=== PATIENT | female | born 1975 | race Caucasian/White ===

== ENCOUNTER 2025-03-17 11:04 | Inpatient (IN) | payer MEDICARE, MEDICAID, SELFPAY ==
[2025-03-17] VITALS (48 sets, daily range): BP systolic 77–278; BP diastolic 43–148; PULSE 69–153; RESP 17–30; TEMP 37.2; O2SAT 87–100; BMI 37.2; BMI 38.1
--- NOTE | 2025-03-17 11:05 | ECG_ITS ---
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 Measurements Intervals [place] Rate: 160 P: 0 UT: 0 QRS: 54 QRSD: 80 T: 74 QT: 299 QTc: 488 Interpretive Statements SUPRAVENTRICULAR TACHYCARDIA, possibly sinus NONSPECIFIC T-WAVE ABNORMALITY CRITICAL TEST RESULT No previous ECG available for comparison Electronically Signed On 03-18-2025 08:45:28 CDT by Aminah Burk M.D. [email or web address] [id number]
--- NOTE | 2025-03-17 11:14 | XR_ITS ---
WS: [id number] Portable AP upright chest, 03/17/2025 Clinical Data: hypertension Comparison: None. Findings: No nodules, masses or effusions are seen. The heart is normal. The pulmonary vascularity is not increased. No pneumonia or pneumothorax is seen. Monitor leads are on the chest wall. XR/XR chest 1V portable [id number] Impression: Negative chest.
[2025-03-17] MEDS: labetalol 5 mg/mL SDV 20mL 20 MG IVP (11:21)
[2025-03-17 11:23] LABS: Basophils # 0.1 10^3/uL (0.0-0.1); Basophils % 0.9 %; Eosinophils # 0.6 10^3/uL (0.0-0.8); Eosinophils % 4.8 %; Hematocrit 41.6 % (36-47); Lymphocytes # 4.6 10^3/uL (0.8-4.8); Lymphocytes % 38.2 %; Mean Corpuscular HGB Conc 33.4 g/dL (30-55); Mean Corpuscular Hemoglobin 30.3 pg (27-33); Mean Corpuscular Volume 90.8 fl (85-98); Mean Platelet Volume 9.7 fL (7.4-10.4); Monocytes # 0.9 10^3/uL (0.2-0.9); Monocytes % 7.3 %; Neutrophils # 5.86 10^3/uL (1.8-7.7); Neutrophils % 48.5 %; Nucleated Red Blood Cells % 0 %; Platelet Count 402 10^3/cmm (157-399); Red Blood Count 4.58 10^6/uL (3.85-5.65); White Blood Count 12.08 10^3/uL (3.29-11.43)
[2025-03-17 11:39] LABS: Lactic Sepsis W/Reflex 6.3 mmol/L (0.5-2.2)
--- NOTE | 2025-03-17 11:40 | W.ED.CHESTPA ---
HPI - Chest Pain General: Chief Complaint: Chest Pain Stated Complaint: rapid response - high bp and hr Time Seen by Provider: 03/17/25 11:08 History of Present Illness: 49-year-old female with a history of extremely difficult to control blood pressure on multiple meds who says she is followed with multiple different subspecialties including cardiology, psychiatry and today she had an appointment with endocrinology because they thought she might have adrenal problems who was sent to the emergency room on a rapid response because when she arrived there her blood pressure was extremely elevated and she was tachycardic. She is having some chest discomfort. She appears quite anxious. She says she is been admitted multiple times to the ICU with her elevated blood pressure. She normally follows at [place] but was here because endocrinology is here. Related Data Home Medications ?Medication ?Instructions ?Recorded ?Confirmed alprazolam 2 mg tablet 2 mg PO TID 03/17/25 03/17/25 aripiprazole 15 mg tablet 15 mg PO BID 03/17/25 03/17/25 buprenorphine HCl 8 mg sublingual 8 mg sublingual BID 03/17/25 03/17/25 tablet bupropion HCl 150 mg tablet,12 hr 150 mg PO DAILY 03/17/25 03/17/25 sustained-release buspirone 15 mg tablet 15 mg PO TID 03/17/25 03/17/25 clonidine HCl 0.2 mg tablet 0.2 mg PO TID 03/17/25 03/17/25 ergocalciferol (vitamin D2) 1,250 1,250 mcg PO DAILY 03/17/25 03/17/25 mcg (50,000 unit) capsule fluticasone propionate 50 2 spray intranasal DAILY 03/17/25 03/17/25 mcg/actuation nasal spray,suspension hydroxyzine pamoate 50 mg capsule 50 mg PO Q6H 03/17/25 03/17/25 lamotrigine 100 mg tablet 100 mg PO DAILY 03/17/25 03/17/25 losartan 50 mg tablet 50 mg PO DAILY 03/17/25 03/17/25 metoprolol succinate 100 mg 100 mg PO BID 03/17/25 03/17/25 tablet,extended release 24 hr mirabegron 50 mg tablet,extended 50 mg PO DAILY 03/17/25 03/17/25 release 24 hr (Myrbetriq) nifedipine 90 mg tablet,extended 90 mg PO DAILY 03/17/25 03/17/25 release nitroglycerin 0.4 mg sublingual 0.4 mg sublingual PRN PRN Chest 03/17/25 03/17/25 tablet Pain omeprazole 40 mg capsule,delayed 40 mg PO DAILY 03/17/25 03/17/25 release oxybutynin chloride 10 mg 10 mg PO DAILY 03/17/25 03/17/25 tablet,extended release 24 hr potassium chloride 10 mEq 10 meq PO BID 03/17/25 03/17/25 tablet,extended release prazosin 5 mg capsule 25 mg PO QPM 03/17/25 03/17/25 promethazine 25 mg tablet 25 mg PO BID 03/17/25 03/17/25 sertraline 50 mg tablet 50 mg PO DAILY 03/17/25 03/17/25 tizanidine 4 mg tablet 4 mg PO BID 03/17/25 03/17/25 topiramate 50 mg tablet 50 mg PO DAILY 03/17/25 03/17/25 trazodone 150 mg tablet 150 mg PO TID 03/17/25 03/17/25 Allergies Allergy/AdvReac Type Severity Reaction Status Date / Time buprenorphine (From [facility]) Allergy Unknown Verified 03/17/25 10:45 droperidol Allergy Unknown Verified 03/17/25 10:45 naloxone Allergy Unknown Verified 03/17/25 10:45 Review of Systems Narrative: Constitutional symptoms: Negative except as documented in HPI. Skin symptoms: Negative except as documented in HPI. Eye symptoms: Negative except as documented in HPI. ENMT symptoms: Negative except as documented in HPI. Respiratory symptoms: Negative except as documented in HPI. Cardiovascular symptoms: Negative except as documented in HPI. Gastrointestinal symptoms: Negative except as documented in HPI. Genitourinary symptoms: Negative except as documented in HPI. Musculoskeletal symptoms: Negative except as documented in HPI. Neurologic symptoms: Negative except as documented in HPI. Psychiatric symptoms: Negative except as documented in HPI. Endocrine symptoms: Negative except as documented in HPI. PFSH ED PFSH: Social History Smoking and tobacco/nicotine status: never used tobacco/nicotine Physical Exam Narrative: EXAM NARRATIVE: General: Alert, no acute distress. Skin: Warm, dry. Head: Normocephalic, atraumatic. Neck: Supple, trachea midline. Eye: Extraocular movements are intact. Ears, nose, mouth and throat: mucosa moist. Cardiovascular: Regular, tachycardic normal peripheral perfusion. Respiratory: Lungs are clear to auscultation, respirations are non-labored, breath sounds are equal, Symmetrical chest wall expansion. Gastrointestinal: Soft, Nontender, Non distended Musculoskeletal: Normal ROM, no deformity. Neurological: Alert and oriented, No focal neurological deficit observed. Psychiatric: Cooperative, patient appears quite anxious. She has some tremor. Course Vital Signs: Vital signs: Vital Signs Temperature 99.0 F 03/17/25 11:06 Pulse Rate 105 H 03/17/25 12:21 Respiratory Rate 26 H 03/17/25 11:28 Blood Pressure 225/138 03/17/25 11:52 Pulse Oximetry 96 03/17/25 12:21 Oxygen Delivery Me thod Room Air 03/17/25 12:21 MDM - Chest Pain Medical Decision Making Medical decision making: Differential diagnosis including but not limited to and based on the above HPI, review of systems and physical exam: Patient presents with hypertension: Essential hypertension. Stroke. acute coronary syndrome. kidney failure. congestive heart failure. anxiety Orders placed to evaluate differential diagnosis based on the above differential, HPI and physical exam EKG: Time 11:05 AM. Rate 160. Sinus tachycardia, nonspecific ST changes., no ectopy, normal TN & QRS intervals, This was reviewed and interpreted by myself the ER physician at 1108 Chest x-ray: No acute process. No infiltrate. No pneumothorax. This was reviewed and interpreted by myself the emergency room physician. I also reviewed the radiology report. Lab Review: Laboratory results were reviewed and interpreted by myself the emergency room physician. Mild leukocytosis. No anemia. Creatinine is 1.3. No baseline lab work here. Initial troponin is negative at 12. proBNP is basically negative at 184. Lactate is fairly elevated at 6.3. No signs of infection. Unclear etiology to this elevation in the lactate. Urinalysis has been ordered. I reviewed the patient's medical record. Reexamination: Patient's heart rate has improved quite a bit. At the time of admission she is down to 97. Blood pressure is improved slightly. She is Bautista from the 280s to 220s systolic. She says at best at home at rest she is between 180 and 220 systolic. Consultation: I spoke with Dr. Perez we are is on-call for the hospitalist service who agrees to admission to the cardiac stepdown unit. Assessment and plan: Malignant hypertension Tachycardia Chest pain ?20 mg IV labetalol push and a nicardipine drip were initiated -I discussed the patient with the hospitalist on-call who is admitting the patient. - Discussed findings and plan with patient. Answered any questions. - All laboratory values were reviewed and interpreted personally by myself, the ER physician - All imaging was reviewed and interpreted personally by myself, the ER physician. - Evaluation and treatment of this problem were appropriate in the emergency setting Lab Data 03/17/25 11:15 03/17/25 11:15 Radiology Impressions Chest X-Ray 03/17/25 11:14 Impression: Negative chest. Laboratory Results WBC 12.08 10^3/uL (3.29-11.43) H 03/17/25 11:15 RBC 4.58 10^6/uL (3.85-5.65) 03/17/25 11:15 Hgb 13.90 g/dL (11.27-16.99) 03/17/25 11:15 Hct 41.6 % (36-47) 03/17/25 11:15 MCV 90.8 fl (85-98) 03/17/25 11:15 MCH 30.3 pg (27-33) 03/17/25 11:15 MCHC 33.4 g/dL (30-55) 03/17/25 11:15 RDW 13.0 % (12.1-15.1) 03/17/25 11:15 Plt Count 402 10^3/cmm (157-399) H 03/17/25 11:15 MPV 9.7 fL (7.4-10.4) 03/17/25 11:15 Neut % (Auto) 48.5 % 03/17/25 11:15 Lymph % (Auto) 38.2 % 03/17/25 11:15 Banner % (Auto) 7.3 % 03/17/25 11:15 Eos % (Auto) 4.8 % 03/17/25 11:15 Baso % (Auto) 0.9 % 03/17/25 11:15 Neut # (Auto) 5.86 10^3/uL (1.8-7.7) 03/17/25 11:15 Lymph # (Auto) 4.6 10^3/uL (0.8-4.8) 03/17/25 11:15 Banner # (Auto) 0.9 10^3/uL (0.2-0.9) 03/17/25 11:15 Eos # (Auto) 0.6 10^3/uL (0.0-0.8) 03/17/25 11:15 Baso # (Auto) 0.1 10^3/uL (0.0-0.1) 03/17/25 11:15 Nucleated RBC % (auto) 0 % 03/17/25 11:15 Nucleated RBCs # 0.0 /100WBC 03/17/25 11:15 Sodium 146 mmol/L (136-145) H 03/17/25 11:15 Potassium 3.5 mmol/L (3.5-5.1) 03/17/25 11:15 Chloride 104 mmol/L (98-107) 03/17/25 11:15 Carbon Dioxide 19 mmol/L (22-29) L 03/17/25 11:15 Anion Gap 26.5 (5-19) H 03/17/25 11:15 BUN 10 mg/dL (6-20) 03/17/25 11:15 Creatinine 1.3 mg/dL (0.5-0.9) H 03/17/25 11:15 GFR Calculation 43.5 mL/min (90-130) L 03/17/25 11:15 Glucose 163 mg/dL (65-115) H 03/17/25 11:15 Calculated Osmolality 305 mOsm/kg (285-295) H 03/17/25 11:15 Lactic Acid 6.3 mmol/L (0.5-2.2) H* 03/17/25 11:15 Calcium 9.9 mg/dL (8.5-10.5) 03/17/25 11:15 Total Bilirubin 0.5 mg/dL (0.15-1.2) 03/17/25 11:15 AST 59 U/L (0-32) H 03/17/25 11:15 ALT 48 U/L (0-33) H 03/17/25 11:15 Alkaline Phosphatase 162 U/L (35-105) H 03/17/25 11:15 Troponin T Baseline 12 ng/L (0-10) H 03/17/25 11:15 NT-Pro-B Natriuret Pep 184 pg/mL (0-125) H 03/17/25 11:15 Total Protein 7.6 g/dL (6.6-8.7) 03/17/25 11:15 Albumin 4.4 g/dL (3.5-5.2) 03/17/25 11:15 Globulin 3.2 g/dL (1.3-4.6) 03/17/25 11:15 All radiology interpretation(s) finalized by discharge Discharge Plan Discharge Patient Disposition: Admitted As Inpatient Clinical Impression: Malignant hypertension, Chest pain, Tachycardia Condition: Stable Coding Level of Care Code 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
[2025-03-17 11:44] LABS: Troponin(5th) Baseline 12 ng/L (0-10)
[2025-03-17 11:54] LABS: Alanine Aminotransferase 48 U/L (0-33); Albumin Level 4.4 g/dL (3.5-5.2); Alkaline Phosphatase 162 U/L (35-105); Blood Urea Nitrogen 10 mg/dL (6-20); Calcium 9.9 mg/dL (8.5-10.5); Carbon Dioxide 19 mmol/L (22-29); Chloride 104 mmol/L (98-107); Creatinine Clr Calc Pharmacy 68.4184; Globulin 3.2 g/dL (1.3-4.6); Glomerular Filtration Rate 43.5 mL/min (90-130); Glucose 163 mg/dL (65-115); NT Pro B Type Natriuretic Pept 184 pg/mL (0-125); Osmolality Calculated 305 mOsm/kg (285-295); Sodium 146 mmol/L (136-145); Total Bilirubin 0.5 mg/dL (0.15-1.2); Total Protein 7.6 g/dL (6.6-8.7)
[2025-03-17 12:05] LABS: Anion Gap 26.5 (5-19)
[2025-03-17 12:07] LABS: Aspartate Amino Transferase 59 U/L (0-32); Potassium 3.5 mmol/L (3.5-5.1)
[2025-03-17] MEDS: ondansetron 2 mg/ML SDV 2 mL 8 MG IVP (12:11)
[2025-03-17] MEDS: LORazepam 2 mg/mL INJ 1 mL 1 MG IVP (12:13)
[2025-03-17] MEDS: nicardipine 20 MG/200 ML PREMIX 5 MG IV (12:19)
--- NOTE | 2025-03-17 13:00 | ECG_ITS ---
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 Measurements Intervals [place] Rate: 96 P: 46 [place]: 181 QRS: 37 QRSD: 88 T: 48 QT: 359 QTc: 455 Interpretive Statements SINUS RHYTHM NONSPECIFIC T-WAVE ABNORMALITY Compared to ECG 03/17/2025 11:05:57 Supraventricular tachycardia no longer present T-wave abnormality still present Electronically Signed On 03-18-2025 09:03:25 CDT by Aminah Burk M.D. [id number] [id number]
[2025-03-17 13:07] LABS: Reflex Lactate Order REFLEX LACTIC ORDERD
--- NOTE | 2025-03-17 14:03 | PM.HP ---
Providers/Chief Complaint Primary Care Provider: Ary Hernandez MD Chief Complaint: rapid response - high bp and hr History of Present Illness Carmela Mcgowan is a 49 year old female with past medical history of hypertension, difficult to control, anxiety, MDD, colitis, congestive heart failure was sent from endocrinology clinic today for extremely high blood pressure of 238/120. [employer] called. She was complaining of chest discomfort and nausea at the time. While on her way to ER she had a syncopal episode. As per the patient she has been having difficult to control high blood pressure since last few years and has been working with psychiatry, primary care, nephrology for appropriate treatment. She was referred to endocrinology for further evaluation of pheochromocytoma. As per the patient she woke up this morning with high blood pressure, systolic in 200s and was not feeling well, took nitroglycerin and clonidine for blood pressure but still walked to the endocrinology clinic for further workup. She has a history of multiple ICU admissions for hypertensive urgency. She normally follows at [facility] for her medical problems. At the time of assessment, denied any complaint of headache, nausea, vomiting, fever, cough, chest pain or shortness of breath. Review of Systems General: Reports: 10 or more systems reviewed and unremarkable except in HPI and below Medications/Allergies Home Medications ?Medication ?Instructions ?Recorded ?Confirmed ?Last Taken ?Type alprazolam 2 mg tablet 2 mg PO TID 03/17/25 03/17/25 03/16/25 History aripiprazole 15 mg tablet 15 mg PO BID 03/17/25 03/17/25 03/16/25 History buprenorphine HCl 8 mg sublingual 8 mg sublingual BID 03/17/25 03/17/25 03/16/25 History tablet bupropion HCl 150 mg tablet,12 hr 150 mg PO DAILY 03/17/25 03/17/25 03/16/25 History sustained-release buspirone 15 mg tablet 15 mg PO TID 03/17/25 03/17/25 03/16/25 History clonidine HCl 0.2 mg tablet 0.2 mg PO TID 03/17/25 03/17/25 03/16/25 History ergocalciferol (vitamin D2) 1,250 1,250 mcg PO DAILY 03/17/25 03/17/25 Unknown History mcg (50,000 unit) capsule fluticasone propionate 50 2 spray intranasal DAILY 03/17/25 03/17/25 03/16/25 History mcg/actuation nasal spray,suspension hydroxyzine pamoate 50 mg capsule 50 mg PO Q6H 03/17/25 03/17/25 03/16/25 History lamotrigine 100 mg tablet 100 mg PO DAILY 03/17/25 03/17/25 03/16/25 History losartan 50 mg tablet 50 mg PO DAILY 03/17/25 03/17/25 03/16/25 History metoprolol succinate 100 mg 100 mg PO BID 03/17/25 03/17/25 03/16/25 History tablet,extended release 24 hr mirabegron 50 mg tablet,extended 50 mg PO DAILY 03/17/25 03/17/25 03/16/25 History release 24 hr (Myrbetriq) nifedipine 90 mg tablet,extended 90 mg PO DAILY 03/17/25 03/17/25 03/16/25 History release nitroglycerin 0.4 mg sublingual 0.4 mg sublingual PRN PRN Chest 03/17/25 03/17/25 Unknown History tablet Pain omeprazole 40 mg capsule,delayed 40 mg PO DAILY 03/17/25 03/17/25 03/16/25 History release oxybutynin chloride 10 mg 10 mg PO DAILY 03/17/25 03/17/25 03/16/25 History tablet,extended release 24 hr potassium chloride 10 mEq 10 meq PO BID 03/17/25 03/17/25 03/16/25 History tablet,extended release prazosin 5 mg capsule 25 mg PO QPM 03/17/25 03/17/25 03/16/25 History promethazine 25 mg tablet 25 mg PO BID 03/17/25 03/17/25 03/16/25 History sertraline 50 mg tablet 50 mg PO DAILY 03/17/25 03/17/25 03/16/25 History tizanidine 4 mg tablet 4 mg PO BID 03/17/25 03/17/25 03/16/25 History topiramate 50 mg tablet 50 mg PO DAILY 03/17/25 03/17/25 03/16/25 History trazodone 150 mg tablet 150 mg PO TID 03/17/25 03/17/25 03/16/25 History Allergies Allergy/AdvReac Type Severity Reaction Status Date / Time buprenorphine (From [facility]) Allergy Unknown Verified 03/17/25 10:45 droperidol Allergy Unknown Verified 03/17/25 10:45 naloxone Allergy Unknown Verified 03/17/25 10:45 PFSH Acute PFSH: Social History Smoking and tobacco/nicotine status: never used tobacco/nicotine Vitals/I&O/Wt Last Vital Signs Temp 99.0 F 03/17/25 11:06 Pulse 105 H 03/17/25 13:15 Resp 20 H 03/17/25 13:15 BP 225/138 03/17/25 11:52 Pulse Ox 94 03/17/25 13:15 O2 Del Method Room Air 03/17/25 13:15 03/16/25 03/17/25 03/17/25 22:59 06:59 14:59 Intake Total 6.417 / 6.417 Balance 6.417 / 6.417 Weight last 48 hrs Weight 111.13 kg Physical Exam Narrative: She is alert awake oriented x 3, not in acute distress, morbidly obese Chest clear to auscultation bilaterally Cardiovascular normal heart sounds no murmurs Abdomen soft nontender nondistended normal bowel sounds Extremities no edema noted bilateral lower extremities Data 03/17/25 11:15 03/17/25 11:15 A&P Assessment and plan (1) Hypertensive urgency: (2) Chest pain: (3) Syncope: (4) Lactic acidosis: (5) Adrenal nodule: (6) Anxiety: (7) MDD (major depressive disorder): Plan Carmela Mcgowan is a 49 year old female with past medical history of hypertension, difficult to control, anxiety, MDD, colitis, congestive heart failure was sent from endocrinology clinic today for extremely high blood pressure of 238/120. [employer] called. She was complaining of chest discomfort and nausea at the time. While on her way to ER she had a syncopal episode. As per the patient she has been having difficult to control high blood pressure since last few years and has been working with psychiatry, primary care, nephrology for appropriate treatment. She was referred to endocrinology for further evaluation of pheochromocytoma. As per the patient she woke up this morning with high blood pressure, systolic in 200s and was not feeling well, took nitroglycerin and clonidine for blood pressure but still walked to the endocrinology clinic for further workup. She has a history of multiple ICU admissions for hypertensive urgency. She normally follows at [facility] for her medical problems. In ER EKG was sinus tachycardia at 160 bpm, no acute ST-T changes. Chest x-ray negative for acute findings Labs reviewed and showed WBCs 12.0 creatinine 1.3 proBNP 184 Lactate 6.3, anion gap 26 Abnormal LFTs First set of troponins 12 #Hypertensive urgency-unknown etiology Blood pressure at endocrinology clinic was 238/120, in the ER found to be 225/138 with heart rate of 105 received IV labetalol 20 mg and started on nicardipine drip at 5 mg/h Blood pressure currently 127/84 Will reduce nicardipine drip to 2.5 mg/h Continue HUMAN RESOURCES ANALYST nifedipine 90 mg daily, metoprolol 100 mg twice daily, losartan 50 mg daily, clonidine, prazosin and potassium chloride Will check 2D echo 17.8 mm adrenal nodule left side benign in appearance, 05/2023 CT scan , nodule was stable in size compared [address] scan Will check following labs Plasma renin activity Creatinine 24-hour urine Aldosterone Cortisol free 24-hour urine Metanephrines fraction 24-hour urine Cortisol random Catecholamines free urine 24-hour Parathyroid with calcium Nephrology consult #Chest pain-likely secondary to hypertensive urgency EKG sinus tachycardia at 160 bpm, no acute ST-T changes First set of troponins 12. Follow-up's 2-hour and 6-hour troponins Continue cardiac monitoring #Syncope-likely secondary to hypertensive urgency Will continue to monitor Fall precautions #Leukocytosis-likely reactive Will monitor #Lactic acidosis and high anion gap-etiology unknown Will recheck #Anxiety/MDD-continue HUMAN RESOURCES ANALYST alprazolam, aripiprazole, buprenorphine, bupropion, buspirone, hydroxyzine, lamotrigine, sertraline, topiramate and trazodone #GERD-will hold HUMAN RESOURCES ANALYST omeprazole #OAB-continue HUMAN RESOURCES ANALYST oxybutynin GI prophylaxis with IV Pepcid 20 mg twice daily DVT prophylaxis with subcutaneous heparin CODE STATUS discussed with patient, she is DNR/DNI. PDMP PDMP Reviewed: Not Reviewed Attestations Medical Necessity Statement*: Needs continued hospitalization crossing 2 midnights for management of hypertensive urgency with cardiac monitoring, nicardipine drip, echo and supportive care. Time Spent in Patient Care: 40 minutes Coding Level of Care Code Acute Code for Chg Fwd Diagnoses Hypertensive urgency I16.0 Chest pain R07.9 Syncope R55 Lactic acidosis E87.20 Adrenal nodule E27.9 Anxiety F41.9 MDD (major depressive disorder) F32.9 Time Spent (min) 40
[2025-03-17 14:33] LABS: Troponin 5 2HR 14.59 ng/L (0-10); Troponin 5 2HR Delta 2.59 ABS# (0-10)
--- NOTE | 2025-03-17 14:33 | USCV_ITS ---
Carmela Mcgowan Age: 49 Gender: F : 1975 Exam Date: 03/17/2025 18:30 Ordering Phys: Rebeca Montague MD Technologist: JACE [place] [facility] [place]: hypertensive urgency, hx CHF BP: 204 / 130 HR: 82 Rhythm: Sinus Technical Quality: Adequate MEASUREMENTS (Male / Female) Normal Values 2D ECHO LV Diastolic Diameter PLAX 3.8 cm 4.2 - 5.9 / 3.9 - 5.3 cm IVS Diastolic Thickness 1.6 cm 0.6 - 1.0 / 0.6 - 0.9 cm IVS Systolic Thickness 1.7 cm LVPW Diastolic Thickness 1.8 cm 0.6 - 1.0 / 0.6 - 0.9 cm LVPW Systolic Thickness 1.5 cm LVOT Diameter 1.7 cm LV Ejection Fraction 2D Teich 59.8 % LV Ejection Fraction MOD 4C 61.4 % LV Ejection Fraction MOD 2C 70.4 % LV Ejection Fraction 2C AL 69.5 % LA Diameter 3.2 cm Aorta at Sinotubular Diameter 2.6 cm IVC Diameter 1.4 cm M-MODE LA Ao Ratio MM 1.4 AV Cusp Separation MM 1.9 cm DOPPLER AV Peak Velocity 137.0 cm/s LVOT Peak Velocity 115.0 cm/s AV Area Cont Eq vti 2.4 cm squared AV Area Cont Eq pk 2.0 cm squared MV Peak Velocity 113.0 cm/s MV Area PHT 3.4 cm squared Mitral E to A Ratio 0.6 TV Peak Velocity 232.0 cm/s TR Peak Velocity 248.0 cm/s TR Peak Gradient 24.6 mmHg TV Peak E Velocity 49.0 cm/s PV Peak Velocity 91.0 cm/s FINDINGS Left Ventricle Normal left ventricular size and systolic function, EF 60%.. Mild left ventricular hypertrophy. No regional wall motion abnormalities. Grade I/IV diastolic dysfunction (abnormal relaxation filling pattern), normal to mildly elevated filling pressures. Right Ventricle The right ventricle is normal in size and function. Right Atrium The right atrium is normal in size. Left Atrium The left atrium is normal in size. Mitral Valve No gross abnormalities noted Aortic Valve Mild aortic valve regurgitation. Tricuspid Valve Trace tricuspid valve regurgitation. Estimated pulmonary artery peak systolic pressure 28 mmHg Pulmonic Valve No gross abnormalities noted . No gross abnormalities noted Pericardium Normal pericardium without effusion. Aorta Normal ascending aorta dimension. IVC Normal inferior vena cava. CONCLUSIONS Normal left ventricular size and systolic function, EF 60%.. Grade I/IV diastolic dysfunction (abnormal relaxation filling pattern), normal to mildly elevated filling pressures. Mild left ventricular hypertrophy. No regional wall motion abnormalities. Mild aortic valve regurgitation. Trace tricuspid valve regurgitation. Estimated pulmonary artery peak systolic pressure 28 mmHg. There is no pericardial effusion. There are no intracardiac masses. Dr Aminah Burk MD FACC (Electronically Signed) Final Date: 17 March 2025 21:59 S
[2025-03-17 14:34] LABS: Lactic Acid level (Lactate) 3.3 mmol/L (0.5-2.2)
[2025-03-17 15:14] LABS: Bilirubin Urine Negative (Negative); Blood Urine Negative (Negative); Glucose Urine UA Negative (Normal); Ketones Urine Negative (Negative); Leukocyte Esterase Urine Negative (Negative); Nitrate Urine Negative (Negative); Protein Urine 1+ (Negative); Specific Gravity, Urine 1.009 (1.005-1.030); Urine Appearance Clear (CLEAR); Urine Color Yellow (Yellow); Urobilinogen Urine 0.2 mg/dL (Negative); pH Urine 6.5 (5-7)
[2025-03-17 15:17] LABS: Bacteria Urine None Seen /hpf; Hyaline Casts Urine 0-4 /lpf; RBC Urine 0-2 /hpf (0-2); Squamous Epithelial Cell Urine 0-5 /hpf (0-5); WBC Urine 0-5 /hpf (0-5)
[2025-03-17 15:49] LABS: Cortisol Random 9.44 ug/dL (2.47-19.5)
[2025-03-17 15:54] LABS: Calcium 9.6 mg/dL (8.5-10.5)
[2025-03-17] MEDS: famotidine 20 mg/2 mL INJ IVP (16:34)
[2025-03-17] MEDS: BuSPIRONE 10 mg Tablet 15 MG PO ×2 (16:39→21:08)
[2025-03-17] MEDS: hyDROXYzine 25 mg Capsule 50 MG PO ×2 (16:39→21:08)
[2025-03-17] MEDS: heparin 5,000 unit/mL INJ 1 mL 5000 UNIT SUBCUT (16:41)
--- NOTE | 2025-03-17 17:14 | ECG_ITS ---
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 Measurements Intervals [place] Rate: 102 P: 137 VT: 178 QRS: 52 QRSD: 93 T: 78 QT: 342 QTc: 447 Interpretive Statements ECTOPIC ATRIAL TACHYCARDIA NONSPECIFIC T-WAVE ABNORMALITY ABNORMAL RHYTHM ECG WARNING: DATA QUALITY MAY AFFECT INTERPRETATION Compared to ECG 03/17/2025 13:00:24 Sinus rhythm no longer present T-wave abnormality still present Electronically Signed On 03-18-2025 08:58:19 CDT by Aminah Burk M.D. [email or web address] [id number]
[2025-03-17] MEDS: ALPRAZolam 0.5 mg Tablet 2 MG PO ×2 (17:16→21:08)
[2025-03-17] MEDS: ARIPiprazole 10 mg Tablet 15 MG PO (17:16)
[2025-03-17] MEDS: metoprolol succinate ER (24 HR) 100 mg Tablet PO (17:17)
[2025-03-17] MEDS: potassium chloride ER 10 mEq Tablet PO (17:18)
[2025-03-17] MEDS: promethazine 25 mg Tablet PO (17:18)
[2025-03-17] MEDS: tizanidine 4 mg Tablet PO (17:19)
[2025-03-17] MEDS: acetaminophen 500 mg Tablet 1000 MG PO (17:25)
[2025-03-17] MEDS: ondansetron 2 mg/ML SDV 2 mL 4 MG IVP (17:25)
[2025-03-17] MEDS: nitroglycerin 0.4 mg sublingual Tablet SUBLINGUAL (17:35)
[2025-03-17 17:49] LABS: Troponin 5 6HR 12.48 ng/L (0-10); Troponin 5 6HR Delta 0.48 ng/L (0-12)
--- NOTE | 2025-03-17 18:25 | PC.NURSE ---
this nurse attempted to call pt report to ICU and was told that ICU will call back. 1825.
[2025-03-17] MEDS: nicardipine 20 MG/200 ML PREMIX 25 MG IV (18:40)
--- NOTE | 2025-03-17 20:09 | PC.NURSE ---
Pt report called to ICU Valerie.
--- NOTE | 2025-03-17 20:58 | PM.CONSULT ---
Providers/Reason For Consult Consulting Physician/Specialty*: [facility]a/Nephrology Reason for Consult*: Hypertensive urgency Attending Physician: Rebeca Montague MD Primary Care Provider: Ary Hernandez MD History of Present Illness History of Present Illness Carmela Mcgowan is a 49 year old female Patient is a 49-year-old female with past medical history of longstanding hypertension on 5 agents currently and difficult to control with multiple prior ER visits for hypertensive urgency. She also has history of anxiety depression and congestive cardiac failure. Patient was at endocrinology clinic today for evaluation of her adrenal mass and was noted to have elevated blood pressure of 238/120 and she was complaining of nausea and chest pain. Patient reports that she has known adrenal mass for about 2 years now and was referred to endocrine for further workup . Patient also has history of kidney stones. Patient currently on nicardipine drip at 2.5 mg and home meds were resumed. Review of Systems Narrative: Other ROS negative Medications/Allergies Home Medications ?Medication ?Instructions ?Recorded ?Confirmed ?Last Taken ?Type alprazolam 2 mg tablet 2 mg PO TID 03/17/25 03/17/25 03/16/25 History aripiprazole 15 mg tablet 15 mg PO BID 03/17/25 03/17/25 03/16/25 History buprenorphine HCl 8 mg sublingual 8 mg sublingual BID 03/17/25 03/17/25 03/16/25 History tablet bupropion HCl 150 mg tablet,12 hr 150 mg PO DAILY 03/17/25 03/17/25 03/16/25 History sustained-release buspirone 15 mg tablet 15 mg PO TID 03/17/25 03/17/25 03/16/25 History clonidine HCl 0.2 mg tablet 0.2 mg PO TID 03/17/25 03/17/25 03/16/25 History ergocalciferol (vitamin D2) 1,250 1,250 mcg PO DAILY 03/17/25 03/17/25 Unknown History mcg (50,000 unit) capsule fluticasone propionate 50 2 spray intranasal DAILY 03/17/25 03/17/25 03/16/25 History mcg/actuation nasal spray,suspension hydroxyzine pamoate 50 mg capsule 50 mg PO Q6H 03/17/25 03/17/25 03/16/25 History lamotrigine 100 mg tablet 100 mg PO DAILY 03/17/25 03/17/25 03/16/25 History losartan 50 mg tablet 50 mg PO DAILY 03/17/25 03/17/25 03/16/25 History metoprolol succinate 100 mg 100 mg PO BID 03/17/25 03/17/25 03/16/25 History tablet,extended release 24 hr mirabegron 50 mg tablet,extended 50 mg PO DAILY 03/17/25 03/17/25 03/16/25 History release 24 hr (Myrbetriq) nifedipine 90 mg tablet,extended 90 mg PO DAILY 03/17/25 03/17/25 03/16/25 History release nitroglycerin 0.4 mg sublingual 0.4 mg sublingual PRN PRN Chest 03/17/25 03/17/25 Unknown History tablet Pain omeprazole 40 mg capsule,delayed 40 mg PO DAILY 03/17/25 03/17/25 03/16/25 History release oxybutynin chloride 10 mg 10 mg PO DAILY 03/17/25 03/17/25 03/16/25 History tablet,extended release 24 hr potassium chloride 10 mEq 10 meq PO BID 03/17/25 03/17/25 03/16/25 History tablet,extended release prazosin 5 mg capsule 25 mg PO QPM 03/17/25 03/17/25 03/16/25 History promethazine 25 mg tablet 25 mg PO BID 03/17/25 03/17/25 03/16/25 History sertraline 50 mg tablet 50 mg PO DAILY 03/17/25 03/17/25 03/16/25 History tizanidine 4 mg tablet 4 mg PO BID 03/17/25 03/17/25 03/16/25 History topiramate 50 mg tablet 50 mg PO DAILY 03/17/25 03/17/25 03/16/25 History trazodone 150 mg tablet 150 mg PO TID 03/17/25 03/17/25 03/16/25 History Allergies Allergy/AdvReac Type Severity Reaction Status Date / Time buprenorphine (From Zubsolv) Allergy Unknown Verified 03/17/25 10:45 droperidol Allergy Unknown Verified 03/17/25 10:45 naloxone Allergy Unknown Verified 03/17/25 10:45 Current Medications Generic Name Dose Route Start Last Admin Trade Name Freq PRN Reason Stop Dose Admin Acetaminophen 1,000 mg 03/17/25 16:52 03/17/25 17:25 Acetaminophen 500 Mg Tablet PO 1,000 mg Q6H PRN Administration MILD PAIN OR INCREASE TEMP Aripiprazole 15 mg 03/17/25 18:00 03/17/25 17:16 Aripiprazole 10 Mg Tablet PO 15 mg BID TEJAS Administration Buspirone HCl 15 mg 03/17/25 15:00 03/17/25 16:39 Buspirone 10 Mg Tablet PO 15 mg TID TEJAS Administration Famotidine 20 mg 03/17/25 14:30 03/17/25 16:34 Famotidine 20 Mg/2 Ml Inj IVP 20 mg Q12H TEJAS Administration Heparin Sodium (Porcine) 5,000 unit 03/17/25 14:30 03/17/25 16:41 Heparin 5,000 Unit/Ml Inj 1 Ml SUBCUT 5,000 unit Q12H TEJAS Administration Hydroxyzine Pamoate 50 mg 03/17/25 15:15 03/17/25 16:39 Hydroxyzine 25 Mg Capsule PO 50 mg Q6H TEJAS Administration Nicardipine/Sodium Chloride 20 mg in 200 mls @ 0 mls/hr 03/17/25 11:15 03/17/25 18:40 Cardene IV 2.5 mg/hr .Q0M TEJAS 25 mls/hr Administration Protocol Per Protocol Metoprolol Succinate 100 mg 03/17/25 18:00 03/17/25 17:17 Metoprolol Succinate Er (24 Hr) 100 Mg Tablet PO 100 mg BID TEJAS Administration Nitroglycerin 0.4 mg 03/17/25 14:32 03/17/25 17:35 Nitroglycerin 0.4 Mg Sublingual Tablet SUBLINGUAL 0.4 mg PRN PRN Administration Chest Pain Ondansetron HCl 4 mg 03/17/25 14:26 03/17/25 17:25 Ondansetron 2 Mg/Ml Sdv 2 Ml IVP 4 mg Q8H PRN Administration vomiting, or N/V if npo Potassium Chloride 10 meq 03/17/25 18:00 03/17/25 17:18 Potassium Chloride Er 10 Meq Tablet PO 10 meq BID TEJAS Administration Prazosin HCl 25 mg 03/17/25 18:00 03/17/25 17:19 Prazosin 5 Mg Capsule PO Not Given QPM TEJAS Promethazine HCl 25 mg 03/17/25 18:00 03/17/25 17:18 Promethazine 25 Mg Tablet PO 25 mg BID TEJAS Administration Tizanidine HCl 4 mg 03/17/25 18:00 03/17/25 17:19 Tizanidine 4 Mg Tablet PO 4 mg BID TEJAS Administration PFSH Acute PFSH: Social History Smoking and tobacco/nicotine status: never used tobacco/nicotine Vitals/I&O/Wt Last Vital Signs Temp 99.0 F 03/17/25 11:06 Pulse 97 03/17/25 20:24 Resp 18 03/17/25 17:30 BP 165/121 03/17/25 20:24 Pulse Ox 91 03/17/25 20:24 O2 Del Method Room Air 03/17/25 18:30 03/17/25 03/17/25 03/17/25 06:59 14:59 22:59 Intake Total 6.417 / 6.417 193.583 / 200.000 Balance 6.417 / 6.417 193.583 / 200.000 Weight last 48 hrs Weight 111.13 kg Physical Exam Narrative: awake , alert , no distress On room air S1S2 RRR per report Lungs clear per report Abd - soft , non tender per report No edema Data 03/17/25 11:15 03/17/25 11:15 A&P Assessment and plan (1) Hypertensive urgency: 1. Malignant hypertension: has difficult to control hypertension despite being on multiple agents including clonidine, beta-salvador, alpha-salvador, KRYSTAL inhibitors and calcium channel blockers. -patient has a known adrenal mass, workup for secondary causes of hypertension ordered. -Differential diagnosis: Pheochromocytoma, hyperaldosteronism, rule out renal artery stenosis Noted that-urine 24-hour catecholamines and metanephrines, serum cortisol level, plasma renin activity and aldosterone levels have been ordered - Will order renal Doppler ultrasound - Once labs are drawn, will consider adding Aldactone - Currently on nicardipine drip at 2.5 mg, goal to lower not more than 25% in the first 24 hours 2. Chronic kidney disease stage III: Followed by nephrology as outpatient, 3. Hypernatremia, associated with low normal potassium and hypertension-need to rule out hyperaldosteronism: Workup as above 4. Metabolic acidosis, in the setting of lactic acidosis 5. History of CHF, repeat echocardiogram 7. History of kidney stones per patient: Checking calcium, PTH and vitamin D levels, check urine calcium, PTH, urine citrate and oxalate 8. History of anxiety and depression (2) CKD (chronic kidney disease) stage 3, GFR 30-59 ml/min: PDMP PDMP Reviewed: Not Reviewed Consult Attestations Medical Necessity Statement: Per medicine team Coding Level of Care Code Acute Code for Chg Fwd Diagnoses Hypertensive urgency I16.0 CKD (chronic kidney disease) stage 3, GFR 30-59 ml/min N18.30
[2025-03-17] MEDS: trazodone 150 mg Tablet 450 MG PO (21:08)
--- NOTE | 2025-03-17 23:58 | PC.NURSE ---
Dr. العراقي contacted about patients bedtime meds: 2mg Xanax, 450mg Trazadone, 50mg Hydroxyzine and 15mg Buspar. Patient states she takes all of these together at home with no issues. Dr. العراقي said ok to give as long as she is not having issues with her respiratory status.
[2025-03-18] VITALS (34 sets, daily range): BP systolic 82–155; BP diastolic 50–96; PULSE 60–88; RESP 10–28; TEMP 36.9–37.1; O2SAT 84–97
--- NOTE | 2025-03-18 00:02 | PC.NURSE ---
Dr. العراقي contacted regarding patient's blood pressure dropping, nicapdipine drip turned off at 2130 and blood pressure has continued to drop with MAPs in the 50's, patient is alert and oriented and asymptomatic. Dr. العراقي said to place patient in trendelenburg and call back if her blood pressure drops more or if she becomes symptomatic. Patient's MAP is now 65 after being in trendelenburg.
[2025-03-18] MEDS: famotidine 20 mg/2 mL INJ IVP ×2 (01:39→16:08)
[2025-03-18] MEDS: heparin 5,000 unit/mL INJ 1 mL 5000 UNIT SUBCUT ×2 (01:39→16:08)
[2025-03-18 04:55] LABS: Basophils # 0.1 10^3/uL (0.0-0.1); Basophils % 0.8 %; Eosinophils # 0.1 10^3/uL (0.0-0.8); Eosinophils % 1.2 %; Hematocrit 36.5 % (36-47); Lymphocytes # 1.8 10^3/uL (0.8-4.8); Lymphocytes % 23.9 %; Mean Corpuscular HGB Conc 32.9 g/dL (30-55); Mean Corpuscular Hemoglobin 30.4 pg (27-33); Mean Corpuscular Volume 92.4 fl (85-98); Mean Platelet Volume 9.9 fL (7.4-10.4); Monocytes # 0.5 10^3/uL (0.2-0.9); Monocytes % 6.6 %; Neutrophils # 4.93 10^3/uL (1.8-7.7); Neutrophils % 67.4 %; Nucleated Red Blood Cells % 0 %; Platelet Count 321 10^3/cmm (157-399); Red Blood Count 3.95 10^6/uL (3.85-5.65); Red Cell Distribution Width 13.3 % (12.1-15.1); White Blood Count 7.32 10^3/uL (3.29-11.43)
[2025-03-18 05:15] LABS: Chol HDL Ratio 3.59 mg/dL (0.0-4.40); Cholesterol 212 mg/dL (0-200); HDL Cholesterol 59 mg/dL (60-100); LDL Cholesterol Calculated 128 mg/dL (50-129); LDL HDL Ratio 2.17 RATIO (0.00-3.22); Triglycerides 123 mg/dL (0-150)
[2025-03-18 05:22] LABS: Alanine Aminotransferase 36 U/L (0-33); Albumin Level 3.7 g/dL (3.5-5.2); Alkaline Phosphatase 126 U/L (35-105); Anion Gap 18.6 (5-19); Aspartate Amino Transferase 33 U/L (0-32); Blood Urea Nitrogen 12 mg/dL (6-20); Calcium 8.9 mg/dL (8.5-10.5); Carbon Dioxide 26 mmol/L (22-29); Chloride 106 mmol/L (98-107); Glomerular Filtration Rate 31.9 mL/min (90-130); Glucose 126 mg/dL (65-115); Magnesium 1.6 mg/dL (1.7-2.3); Osmolality Calculated 305 mOsm/kg (285-295); Potassium 3.6 mmol/L (3.5-5.1); Sodium 147 mmol/L (136-145); Thyroid Stimulating Hormone 0.65 uIU/mL (0.27-4.20); Total Bilirubin 0.5 mg/dL (0.15-1.2); Total Protein 6.7 g/dL (6.6-8.7)
[2025-03-18 05:38] LABS: Estmated Average Glucose 143; Hemoglobin A1C 6.6 % (4.0-6.0)
--- NOTE | 2025-03-18 06:00 | USCV_ITS ---
Carmela Mcgowan Age: 49 Gender: F : 1975 Exam Date: 03/18/2025 09:20 Ordering Phys: Tiffanie Mack MD Technologist: BERNADETTE [place] [facility] [place]: Malignant HTN Aortic Velocity @ SMA (cm/s) 112 RIGHT KIDNEY LEFT KIDNEY Velocity (cm/s) Velocity (cm/s) Sys/Rosenberg Sys/Rosenberg Resistive Index Resistive Index 35.7 / 15.7 0.56 Proximal Renal Artery 42.6 / 9.5 0.78 38.5 / 12.0 0.69 Mid Renal Artery 66.1 / 17.0 0.74 38.8 / 16.6 0.57 Distal Renal Artery 98.4 / 34.5 0.65 27.5 / 10.2 0.63 Hilar 32.5 / 11.3 0.65 24.3 / 8.0 1.67 Upper Pole 45.2 / 14.5 0.68 18.4 / 5.8 0.68 Mid Pole 18.2 / 7.3 0.60 19.3 / 8.1 0.58 Lower Pole 23.9 / 10.2 0.57 0.34 Renal Aortic Ratio 0.87 Accleration Time (sec) 126.00 Hilar 362.90 80.70 Upper Pole 153.50 87.50 Mid Pole 74.60 212.70 Lower Pole 108.10 11.3 Kidney Length (cm) 9.6 FINDINGS No comparison. Limited renal artery interogation, venous contamination. Normal size kidneys. No evidence of abdominal aortic aneurysm. No elevated renal artery velocity seen. CONCLUSIONS Technically limted exam. No sonographic evidence of hemodynamically significant renal artery stenosis bilaterally. Dr. Tari Fletcher DO (Electronically Signed) Final Date: 18 March 2025 11:40 S
[2025-03-18] MEDS: magnesium sulfate premix 1 GM/100 ML PIGGYBACK IV (09:10)
[2025-03-18] MEDS: topiramate 25 mg Tablet 50 MG PO (09:10)
[2025-03-18] MEDS: ALPRAZolam 0.5 mg Tablet 2 MG PO (09:10)
[2025-03-18] MEDS: lamoTRIgine 100 mg Tablet PO (09:11)
[2025-03-18] MEDS: hyDROXYzine 25 mg Capsule 50 MG PO (09:16)
[2025-03-18] MEDS: ARIPiprazole 10 mg Tablet 15 MG PO (09:16)
[2025-03-18] MEDS: tizanidine 4 mg Tablet PO (09:17)
[2025-03-18] MEDS: BuSPIRONE 10 mg Tablet 15 MG PO (09:17)
[2025-03-18] MEDS: buPROPion SR (12 HR) 150 mg Tablet PO (09:18)
[2025-03-18] MEDS: potassium chloride ER 10 mEq Tablet PO ×2 (09:18→18:57)
[2025-03-18] MEDS: promethazine 25 mg Tablet PO (09:19)
[2025-03-18] MEDS: sertraline 50 mg Tablet PO (09:30)
[2025-03-18] MEDS: metoprolol succinate ER (24 HR) 100 mg Tablet PO (10:23)
--- NOTE | 2025-03-18 11:02 | PC.NURSE ---
Pt's SBP 140-150's. DBP 90's. Metoprolol am dose admin. It has been 1 hour after all the pysch meds admin. Noted pt's speech slightly slurred. No neuro deficits noted. Dr Montague notified of speech and BP. Continue to hold Cozaar and Catapres, and notified of SBP gets to 160 or higher.
--- NOTE | 2025-03-18 12:28 | PC.SOCIAL ---
IMM UPDATED IMM dated and initialed, copy given to patient and copy placed in chart.
--- NOTE | 2025-03-18 13:06 | PM.PN ---
Subjective Subjective: Seen her at bedside this morning. Denies any new complaints. Looks anxious. Has been off Cardene drip since 9 PM last night. Blood pressure currently 127/64. Medications: Reviewed: Yes Vitals/I&O/Wt Last Vital Signs Temp 98.4 F 03/18/25 08:00 Pulse 71 03/18/25 08:00 Resp 19 H 03/18/25 08:00 BP 119/75 03/18/25 08:00 Pulse Ox 92 03/18/25 08:00 O2 Del Method Room Air 03/18/25 08:00 03/17/25 03/18/25 03/18/25 22:59 06:59 14:59 Intake Total 267.750 / 274.167 400 / 400 Output Total 1999 Balance 267.750 / 274.167 -19991725.833 400 / 400 Weight last 48 hrs Weight 113.625 kg Weight 113.761 kg Weight 111.13 kg Physical Exam Narrative: She is alert awake oriented x 3, not in acute distress, morbidly obese Chest clear to auscultation bilaterally Cardiovascular normal heart sounds no murmurs Abdomen soft nontender nondistended normal bowel sounds Extremities no edema noted bilateral lower extremities Data 03/18/25 03:39 03/18/25 03:39 A&P Assessment and plan (1) Hypertensive urgency: (2) Chest pain: (3) Syncope: (4) Lactic acidosis: (5) Adrenal nodule: (6) Anxiety: (7) MDD (major depressive disorder): Plan Carmela Mcgowan is a 49 year old female with past medical history of hypertension, difficult to control, anxiety, MDD, colitis, congestive heart failure was sent from endocrinology clinic today for extremely high blood pressure of 238/120. [employer]INE[employer] called. She was complaining of chest discomfort and nausea at the time. While on her way to ER she had a syncopal episode. As per the patient she has been having difficult to control high blood pressure since last few years and has been working with psychiatry, primary care, nephrology for appropriate treatment. She was referred to endocrinology for further evaluation of pheochromocytoma. As per the patient she woke up this morning with high blood pressure, systolic in 200s and was not feeling well, took nitroglycerin and clonidine for blood pressure but still walked to the endocrinology clinic for further workup. She has a history of multiple ICU admissions for hypertensive urgency. She normally follows at [facility] for her medical problems. In ER EKG was sinus tachycardia at 160 bpm, no acute ST-T changes. Chest x-ray negative for acute findings Labs reviewed and showed WBCs 12.0 creatinine 1.3 proBNP 184 Lactate 6.3, anion gap 26 Abnormal LFTs First set of troponins 12 #Hypertensive urgency-unknown etiology Blood pressure at endocrinology clinic was 238/120, in the ER found to be 225/138 with heart rate of 105 received IV labetalol 20 mg and started on nicardipine drip at 5 mg/h Blood pressure currently 127/84 Will reduce nicardipine drip to 2.5 mg/h Continue [employer] nifedipine 90 mg daily, metoprolol 100 mg twice daily, losartan 50 mg daily, clonidine, prazosin and potassium chloride Will check 2D echo 17.8 mm adrenal nodule left side benign in appearance, 05/2023 CT scan , nodule was stable in size compared [address] scan Will check following labs Plasma renin activity Creatinine 24-hour urine Aldosterone Cortisol free 24-hour urine Metanephrines fraction 24-hour urine Cortisol random Catecholamines free urine 24-hour Parathyroid with calcium Nephrology consult #Chest pain-likely secondary to hypertensive urgency EKG sinus tachycardia at 160 bpm, no acute ST-T changes First set of troponins 12. Follow-up's 2-hour and 6-hour troponins Continue cardiac monitoring #Syncope-likely secondary to hypertensive urgency Will continue to monitor Fall precautions #Leukocytosis-likely reactive Will monitor #Lactic acidosis and high anion gap-etiology unknown Will recheck #Anxiety/MDD-continue [employer] alprazolam, aripiprazole, buprenorphine, bupropion, buspirone, hydroxyzine, lamotrigine, sertraline, topiramate and trazodone #GERD-will hold [employer] omeprazole #OAB-continue [employer] oxybutynin GI prophylaxis with IV Pepcid 20 mg twice daily DVT prophylaxis with subcutaneous heparin CODE STATUS discussed with patient, she is DNR/DNI. 03/18/25 Nephrology consult appreciated. Labs ordered as per recommendation. Blood pressure has been well-controlled since last night. Cardene drip has been discontinued at 9 PM last night. Patient received her psychiatric medications last night. Seems to be holding blood pressure with systolic blood pressure in 120s. Question about compliance with hypertension medications. Will hold BP meds for now and introduce 1 at a time to evaluate for need for multiple medications. Continue to monitor in ICU. Follow-up nephrology for further recommendations. 2 D ECHO showed CONCLUSIONS Normal left ventricular size and systolic function, EF 60%.. Grade I/IV diastolic dysfunction (abnormal relaxation filling pattern), normal to mildly elevated filling pressures. Mild left ventricular hypertrophy. No regional wall motion abnormalities. Mild aortic valve regurgitation. Trace tricuspid valve regurgitation. Estimated pulmonary artery peak systolic pressure 28 mmHg. There is no pericardial effusion. There are no intracardiac masses. Had an episode of drowsiness and hypotension with MAP of 62 after administration of her psychiatric medications. Will reassess psych meds accordingly. PDMP PDMP Reviewed: Not Reviewed Attestations Medical Necessity Statement*: Needs continued hospitalization crossing 2 midnights for management of hypertensive urgency with cardiac monitoring, , echo and supportive care. Time Spent in Patient Care: 20 minutes Coding Level of Care Code Acute Code for Chg Fwd Diagnoses Hypertensive urgency I16.0 Chest pain R07.9 Syncope R55 Lactic acidosis E87.20 Adrenal nodule E27.9 Anxiety F41.9 MDD (major depressive disorder) F32.9 Time Spent (min) 20
[2025-03-18 14:17] LABS: Total Volume Urine 2100 ml
--- NOTE | 2025-03-18 14:17 | P.PN_ITS ---
Subjective 2 Subjective: BP dropped overnight and Nicardipine drip stopped Medications: Reviewed: Yes Vitals/I&O/Wt Last Vital Signs Temp 98.4 F 03/18/25 08:00 Pulse 71 03/18/25 08:00 Resp 19 H 03/18/25 08:00 BP 119/75 03/18/25 08:00 Pulse Ox 92 03/18/25 08:00 O2 Del Method Room Air 03/18/25 08:00 03/17/25 03/18/25 03/18/25 22:59 06:59 14:59 Intake Total 267.750 / 274.167 400 / 400 Output Total 1999 Balance 267.750 / 274.167 -19991725.833 400 / 400 Weight last 48 hrs Weight 113.625 kg Weight 113.761 kg Weight 111.13 kg Physical Exam 2 Narrative: awake , alert , no distress On room air S1S2 RRR per report Lungs clear per report Abd - soft , non tender per report No edema Data 03/18/25 03:39 03/18/25 03:39 A&P Assessment and plan (1) Hypertensive urgency: 1. Malignant hypertension: pt on multiple agents including clonidine, beta- salvador, alpha-salvador, KRYSTAL inhibitors and calcium channel blockers. -patient has a known adrenal mass, workup for secondary causes of hypertension ordered. Noted that-urine 24-hour catecholamines and metanephrines, serum cortisol level, plasma renin activity and aldosterone levels have been ordered - renal Doppler negative - Pt dropped BP drastically after home meds restarted -- which raise question of medication non complaince VS anxiety , Also pheochromocytoma can cause episodic symptoms -all meds are on hold now 2. Chronic kidney disease stage III: Followed by nephrology as outpatient, 3. Hypernatremia, associated with low normal potassium and hypertension-need to rule out hyperaldosteronism: Workup as above 4. Metabolic acidosis, in the setting of lactic acidosis 5. History of CHF, repeat echocardiogram 7. History of kidney stones per patient: Checking calcium, PTH and vitamin D levels, check urine calcium, PTH, urine citrate and oxalate 8. History of anxiety and depression (2) CKD (chronic kidney disease) stage 3, GFR 30-59 ml/min: PDMP PDMP Reviewed: Not Reviewed Attestations 2 Medical Necessity Statement*: per [facility] Coding Level of Care Code Acute Code for Chg Fwd Diagnoses Hypertensive urgency I16.0 CKD (chronic kidney disease) stage 3, GFR 30-59 ml/min N18.30
[2025-03-18 14:20] LABS: Urine Creatinine 72 mg/dL (28-217)
[2025-03-18 14:25] LABS: Calcium 24 Hour Urine 183 mg/24hr (100-300); Urine Calcium Result 8.7 mg/dL
--- NOTE | 2025-03-18 16:50 | PC.NURSE ---
Discussed with Dr Montague pt's home medications reconciliation corrected. Also discussed via secure messaging pt vital signs. drowsiness and Xanax and BP meds due. Orders to hold all BP and Psych meds received. will reintroduce one by one.
--- NOTE | 2025-03-18 19:08 | PC.NURSE ---
Prazosin: Pt refused this evening's dose. Dr Montague notified via secure messaging.
[2025-03-19] VITALS (19 sets, daily range): BP systolic 119–173; BP diastolic 70–106; PULSE 66–84; RESP 12–23; TEMP 36.9–37; O2SAT 90–96
[2025-03-19] MEDS: famotidine 20 mg/2 mL INJ IVP ×2 (01:52→13:56)
[2025-03-19] MEDS: heparin 5,000 unit/mL INJ 1 mL 5000 UNIT SUBCUT ×2 (01:52→13:56)
[2025-03-19 05:31] LABS: Basophils # 0.1 10^3/uL (0.0-0.1); Basophils % 0.7 %; Eosinophils # 0.5 10^3/uL (0.0-0.8); Eosinophils % 5.3 %; Hematocrit 40.9 % (36-47); Lymphocytes # 2.5 10^3/uL (0.8-4.8); Mean Corpuscular HGB Conc 32.8 g/dL (30-55); Mean Corpuscular Hemoglobin 30.7 pg (27-33); Mean Corpuscular Volume 93.8 fl (85-98); Mean Platelet Volume 9.9 fL (7.4-10.4); Monocytes # 0.6 10^3/uL (0.2-0.9); Monocytes % 6.9 %; Neutrophils # 5.32 10^3/uL (1.8-7.7); Neutrophils % 58.8 %; Nucleated Red Blood Cells % 0 %; Platelet Count 313 10^3/cmm (157-399); Red Blood Count 4.36 10^6/uL (3.85-5.65); Red Cell Distribution Width 13.1 % (12.1-15.1); White Blood Count 9.04 10^3/uL (3.29-11.43)
[2025-03-19 06:01] LABS: Alanine Aminotransferase 35 U/L (0-33); Alkaline Phosphatase 146 U/L (35-105); Anion Gap 14.8 (5-19); Aspartate Amino Transferase 33 U/L (0-32); Blood Urea Nitrogen 16 mg/dL (6-20); Calcium 9.3 mg/dL (8.5-10.5); Carbon Dioxide 27 mmol/L (22-29); Chloride 106 mmol/L (98-107); Creatinine Clr Calc Pharmacy 56.8326; Globulin 2.8 g/dL (1.3-4.6); Glomerular Filtration Rate 34.3 mL/min (90-130); Glucose 124 mg/dL (65-115); Osmolality Calculated 301 mOsm/kg (285-295); Potassium 3.8 mmol/L (3.5-5.1); Sodium 144 mmol/L (136-145); Total Bilirubin 0.4 mg/dL (0.15-1.2); Total Protein 6.8 g/dL (6.6-8.7)
[2025-03-19] MEDS: potassium chloride ER 20 mEq Tablet 40 MEQ PO (07:47)
[2025-03-19] MEDS: potassium chloride ER 10 mEq Tablet PO ×2 (08:21→18:48)
[2025-03-19] MEDS: oxybutynin chloride XL 5 MG TABLET 10 MG PO (08:21)
--- NOTE | 2025-03-19 12:50 | P.PN_ITS ---
Subjective 2 Subjective: Seen her at bedside this morning. Still looks drowsy but denies any complaint of chest pain, nausea or headache. No acute overnight events noted Medications: Reviewed: Yes Vitals/I&O/Wt Last Vital Signs Temp 98.4 F 03/19/25 04:00 Pulse 75 03/19/25 08:00 Resp 22 H 03/19/25 08:00 BP 159/87 03/19/25 08:00 Pulse Ox 93 03/19/25 07:37 O2 Del Method Room Air 03/19/25 08:00 O2 Flow Rate 3 03/19/25 07:37 03/18/25 03/19/25 03/19/25 22:59 06:59 14:59 Intake Total 450 / 1300 120 / 120 Output Total 100 / 100 350 / 450 Balance 350 / 1200 -350 / 850 120 / 120 Weight last 48 hrs Weight 115.757 kg Weight 113.625 kg Weight 113.761 kg Physical Exam 2 Narrative: She is alert awake oriented x 3, not in acute distress, morbidly obese Chest clear to auscultation bilaterally Cardiovascular normal heart sounds no murmurs Abdomen soft nontender nondistended normal bowel sounds Extremities no edema noted bilateral lower extremities Data 03/19/25 04:54 03/19/25 04:54 A&P Assessment and plan (1) Hypertensive urgency: (2) Chest pain: (3) Syncope: (4) Lactic acidosis: (5) Adrenal nodule: (6) Anxiety: (7) MDD (major depressive disorder): Plan Carmela Mcgowan is a 49 year old female with past medical history of hypertension, difficult to control, anxiety, MDD, colitis, congestive heart failure was sent from endocrinology clinic today for extremely high blood pressure of 238/120. 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 She was complaining of chest discomfort and nausea at the time. While on her way to ER she had a syncopal episode. As per the patient she has been having difficult to control high blood pressure since last few years and has been working with psychiatry, primary care, nephrology for appropriate treatment. She was referred to endocrinology for further evaluation of pheochromocytoma. As per the patient she woke up this morning with high blood pressure, systolic in 200s and was not feeling well, took nitroglycerin and clonidine for blood pressure but still walked to the endocrinology clinic for further workup. She has a history of multiple ICU admissions for hypertensive urgency. She normally follows at [facility] for her medical problems. In ER EKG was sinus tachycardia at 160 bpm, no acute ST-T changes. Chest x-ray negative for acute findings Labs reviewed and showed WBCs 12.0 creatinine 1.3 proBNP 184 Lactate 6.3, anion gap 26 Abnormal LFTs First set of troponins 12 #Hypertensive urgency-unknown etiology Blood pressure at endocrinology clinic was 238/120, in the ER found to be 225/138 with heart rate of 105 received IV labetalol 20 mg and started on nicardipine drip at 5 mg/h Blood pressure currently 127/84 Will reduce nicardipine drip to 2.5 mg/h Continue [employer] nifedipine 90 mg daily, metoprolol 100 mg twice daily, losartan 50 mg daily, clonidine, prazosin and potassium chloride Will check 2D echo 17.8 mm adrenal nodule left side benign in appearance, 05/2023 CT scan , nodule was stable in size compared [address] scan Will check following labs Plasma renin activity Creatinine 24-hour urine Aldosterone Cortisol free 24-hour urine Metanephrines fraction 24-hour urine Cortisol random Catecholamines free urine 24-hour Parathyroid with calcium Nephrology consult #Chest pain-likely secondary to hypertensive urgency EKG sinus tachycardia at 160 bpm, no acute ST-T changes First set of troponins 12. Follow-up's 2-hour and 6-hour troponins Continue cardiac monitoring #Syncope-likely secondary to hypertensive urgency Will continue to monitor Fall precautions #Leukocytosis-likely reactive Will monitor #Lactic acidosis and high anion gap-etiology unknown Will recheck #Anxiety/MDD-continue [employer] alprazolam, aripiprazole, buprenorphine, bupropion, buspirone, hydroxyzine, lamotrigine, sertraline, topiramate and trazodone #GERD-will hold [employer] omeprazole #OAB-continue TR[employer]ACH oxybutynin GI prophylaxis with IV Pepcid 20 mg twice daily DVT prophylaxis with subcutaneous heparin CODE STATUS discussed with patient, she is DNR/DNI. 03/18/25 Nephrology consult appreciated. Labs ordered as per recommendation. Blood pressure has been well-controlled since last night. Cardene drip has been discontinued at 9 PM last night. Patient received her psychiatric medications last night. Seems to be holding blood pressure with systolic blood pressure in 120s. Question about compliance with hypertension medications. Will hold BP meds for now and introduce 1 at a time to evaluate for need for multiple medications. Continue to monitor in ICU. Follow-up nephrology for further recommendations. 2 D ECHO showed CONCLUSIONS Normal left ventricular size and systolic function, EF 60%.. Grade I/IV diastolic dysfunction (abnormal relaxation filling pattern), normal to mildly elevated filling pressures. Mild left ventricular hypertrophy. No regional wall motion abnormalities. Mild aortic valve regurgitation. Trace tricuspid valve regurgitation. Estimated pulmonary artery peak systolic pressure 28 mmHg. There is no pericardial effusion. There are no intracardiac masses. Had an episode of drowsiness and hypotension with MAP of 62 after administration of her psychiatric medications. Will reassess psych meds accordingly. 03/19/25 Labs for evaluation of pheochromocytoma pending. She has been off Cardene drip for the last 48 hours. Blood pressure has been stable in 120s. BP meds and psychiatric medications on hold secondary to hypotension and drowsiness. Continue to monitor. Will introduce BP meds as needed and continue to hold psychiatry medications. She was educated and counseled about polypharmacy causing hypotension hypoxia, was able to understand and agrees with plan of care. PDMP PDMP Reviewed: Not Reviewed Attestations 2 Medical Necessity Statement*: Needs continued hospitalization crossing 2 midnights for management of hypertensive urgency with cardiac monitoring, ,and supportive care. Time Spent in Patient Care: 20 minutes Coding Level of Care Code Acute Code for Chg Fwd Diagnoses Hypertensive urgency I16.0 Chest pain R07.9 Syncope R55 Lactic acidosis E87.20 Adrenal nodule E27.9 Anxiety F41.9 MDD (major depressive disorder) F32.9 Time Spent (min) 20
[2025-03-19] MEDS: cloNIDine 0.1 mg Tablet PO (14:03)
[2025-03-19 18:12] LABS: Glucose Point of Care 116 mg/dL (70-110)
[2025-03-19] MEDS: hyDRALAzine 25 mg Tablet PO (20:21)
--- NOTE | 2025-03-19 21:29 | P.PN_ITS ---
Subjective 2 Subjective: BP fluctuating Medications: Reviewed: Yes Vitals/I&O/Wt Last Vital Signs Temp 98.5 F 03/19/25 19:59 Pulse 74 03/19/25 19:59 Resp 16 03/19/25 19:59 BP 157/103 03/19/25 19:59 Pulse Ox 95 03/19/25 19:59 O2 Del Method Nasal Cannula 03/19/25 19:59 O2 Flow Rate 1 03/19/25 19:59 03/19/25 03/19/25 03/19/25 06:59 14:59 22:59 Intake Total 220 / 220 Output Total 350 / 450 Balance -350 / 850 220 / 220 Weight last 48 hrs Weight 115.757 kg Weight 113.625 kg Physical Exam 2 Narrative: awake , alert , no distress On room air S1S2 RRR per report Lungs clear per report Abd - soft , non tender per report No edema Data 03/19/25 04:54 03/19/25 04:54 A&P Assessment and plan (1) Hypertensive urgency: 1. Malignant hypertension: pt on multiple agents including clonidine, beta- salvador, alpha-salvador, KRYSTAL inhibitors and calcium channel blockers. -patient has a known adrenal mass, workup for secondary causes of hypertension ordered. Noted that-urine 24-hour catecholamines and metanephrines, serum cortisol level, plasma renin activity and aldosterone levels have been ordered - renal Doppler negative - Pt dropped BP drastically after home meds restarted -- which raise question of medication non complaince VS anxiety , Also pheochromocytoma can cause episodic symptoms -all meds are on hold , re added minipress and nifedipine -on prn hydralazine and clonidine 2. Chronic kidney disease stage III: Followed by nephrology as outpatient, 3. Hypernatremia, associated with low normal potassium and hypertension-need to rule out hyperaldosteronism: Workup as above 4. Metabolic acidosis, in the setting of lactic acidosis 5. History of CHF, repeat echocardiogram 7. History of kidney stones per patient: Checking calcium, PTH and vitamin D levels, check urine calcium, PTH, urine citrate and oxalate 8. History of anxiety and depression (2) CKD (chronic kidney disease) stage 3, GFR 30-59 ml/min: PDMP PDMP Reviewed: Not Reviewed Attestations 2 Medical Necessity Statement*: per medicine Coding Level of Care Code Acute Code for Chg Fwd Diagnoses Hypertensive urgency I16.0 CKD (chronic kidney disease) stage 3, GFR 30-59 ml/min N18.30
[2025-03-19] MEDS: NIFEdipine ER (24 hr) 30 mg Tablet PO (22:10)
[2025-03-20] VITALS (11 sets, daily range): BP systolic 122–164; BP diastolic 73–104; PULSE 66–82; RESP 12–20; TEMP 36.6–37.3; O2SAT 75–97
[2025-03-20] MEDS: heparin 5,000 unit/mL INJ 1 mL 5000 UNIT SUBCUT ×2 (03:24→13:52)
[2025-03-20] MEDS: famotidine 20 mg/2 mL INJ IVP (03:24)
[2025-03-20 03:56] LABS: Basophils % 0.5 %; Eosinophils # 0.5 10^3/uL (0.0-0.8); Hematocrit 40.3 % (36-47); Lymphocytes # 2.3 10^3/uL (0.8-4.8); Lymphocytes % 30.1 %; Mean Corpuscular Hemoglobin 31.5 pg (27-33); Mean Corpuscular Volume 92.6 fl (85-98); Mean Platelet Volume 11.3 fL (7.4-10.4); Monocytes # 0.6 10^3/uL (0.2-0.9); Monocytes % 7.4 %; Neutrophils # 4.14 10^3/uL (1.8-7.7); Neutrophils % 54.6 %; Nucleated Red Blood Cells % 0 %; Platelet Count 199 10^3/cmm (157-399); Red Blood Count 4.35 10^6/uL (3.85-5.65); Red Cell Distribution Width 12.8 % (12.1-15.1); White Blood Count 7.58 10^3/uL (3.29-11.43)
[2025-03-20 04:27] LABS: Alanine Aminotransferase 31 U/L (0-33); Albumin Level 3.7 g/dL (3.5-5.2); Alkaline Phosphatase 135 U/L (35-105); Aspartate Amino Transferase 29 U/L (0-32); Blood Urea Nitrogen 16 mg/dL (6-20); Carbon Dioxide 24 mmol/L (22-29); Chloride 106 mmol/L (98-107); Creatinine Clr Calc Pharmacy 60.8343; Globulin 2.5 g/dL (1.3-4.6); Glomerular Filtration Rate 36.9 mL/min (90-130); Glucose 118 mg/dL (65-115); Magnesium 1.8 mg/dL (1.7-2.3); Osmolality Calculated 294 mOsm/kg (285-295); Sodium 141 mmol/L (136-145); Total Bilirubin 0.4 mg/dL (0.15-1.2); Total Protein 6.2 g/dL (6.6-8.7)
[2025-03-20 04:32] LABS: Anion Gap 15.2 (5-19); Potassium 4.2 mmol/L (3.5-5.1)
[2025-03-20] MEDS: oxybutynin chloride XL 5 MG TABLET 10 MG PO (07:32)
[2025-03-20] MEDS: NIFEdipine ER (24 hr) 30 mg Tablet PO (07:35)
[2025-03-20] MEDS: potassium chloride ER 10 mEq Tablet PO ×2 (07:35→17:36)
--- NOTE | 2025-03-20 08:35 | PC.NURSE ---
Moy catheter removed per Dr Montague. Patient tolerated well. Patient voiced concerns of passing out . Instructed patient on need to get out of bed and ambulate. Patient verbalized understanding. Will continue to monitor.
--- NOTE | 2025-03-20 10:00 | PC.NURSE ---
Assisted patient up to bathroom x1 assist with walker. Noted patient to be shakey during ambulation. Did not complain about dizziness. Patient says she uses a wheelchair at home.
--- NOTE | 2025-03-20 11:47 | P.PN_ITS ---
Subjective 2 Subjective: No new complaints noted Medications: Reviewed: Yes Vitals/I&O/Wt Last Vital Signs Temp 98.2 F 03/20/25 08:00 Pulse 82 03/20/25 08:00 Resp 20 H 03/20/25 08:00 BP 164/104 03/20/25 08:00 Pulse Ox 94 03/20/25 08:00 O2 Del Method Room Air 03/20/25 08:00 O2 Flow Rate 2 03/20/25 03:22 03/19/25 03/20/25 03/20/25 22:59 06:59 14:59 Intake Total 120 / 120 Output Total 750 / 750 Balance -750 / -530 120 / 120 Weight last 48 hrs Weight 116.5 kg Weight 115.757 kg Physical Exam 2 Narrative: She is alert awake oriented x 3, not in acute distress, morbidly obese Chest clear to auscultation bilaterally Cardiovascular normal heart sounds no murmurs Abdomen soft nontender nondistended normal bowel sounds Extremities no edema noted bilateral lower extremities Data 03/20/25 03:43 03/20/25 03:43 A&P Assessment and plan (1) Hypertensive urgency: (2) Chest pain: (3) Syncope: (4) Lactic acidosis: (5) Adrenal nodule: (6) Anxiety: (7) MDD (major depressive disorder): Plan Carmela Mcgowan is a 49 year old female with past medical history of hypertension, difficult to control, anxiety, MDD, colitis, congestive heart failure was sent from endocrinology clinic today for extremely high blood pressure of 238/120. 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 She was complaining of chest discomfort and nausea at the time. While on her way to ER she had a syncopal episode. As per the patient she has been having difficult to control high blood pressure since last few years and has been working with psychiatry, primary care, nephrology for appropriate treatment. She was referred to endocrinology for further evaluation of pheochromocytoma. As per the patient she woke up this morning with high blood pressure, systolic in 200s and was not feeling well, took nitroglycerin and clonidine for blood pressure but still walked to the endocrinology clinic for further workup. She has a history of multiple ICU admissions for hypertensive urgency. She normally follows at [facility] for her medical problems. In ER EKG was sinus tachycardia at 160 bpm, no acute ST-T changes. Chest x-ray negative for acute findings Labs reviewed and showed WBCs 12.0 creatinine 1.3 proBNP 184 Lactate 6.3, anion gap 26 Abnormal LFTs First set of troponins 12 #Hypertensive urgency-unknown etiology Blood pressure at endocrinology clinic was 238/120, in the ER found to be 225/138 with heart rate of 105 received IV labetalol 20 mg and started on nicardipine drip at 5 mg/h Blood pressure currently 127/84 Will reduce nicardipine drip to 2.5 mg/h Continue [employer]AT[employer]OR MECH[employer]IC nifedipine 90 mg daily, metoprolol 100 mg twice daily, losartan 50 mg daily, clonidine, prazosin and potassium chloride Will check 2D echo 17.8 mm adrenal nodule left side benign in appearance, 05/2023 CT scan , nodule was stable in size compared [address] scan Will check following labs Plasma renin activity Creatinine 24-hour urine Aldosterone Cortisol free 24-hour urine Metanephrines fraction 24-hour urine Cortisol random Catecholamines free urine 24-hour Parathyroid with calcium Nephrology consult #Chest pain-likely secondary to hypertensive urgency EKG sinus tachycardia at 160 bpm, no acute ST-T changes First set of troponins 12. 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 03/18/25 Nephrology consult appreciated. Labs ordered as per recommendation. Blood pressure has been well-controlled since last night. Cardene drip has been discontinued at 9 PM last night. Patient received her psychiatric medications last night. Seems to be holding blood pressure with systolic blood pressure in 120s. Question about compliance with hypertension medications. Will hold BP meds for now and introduce 1 at a time to evaluate for need for multiple medications. Continue to monitor in ICU. Follow-up nephrology for further recommendations. 2 D ECHO showed CONCLUSIONS Normal left ventricular size and systolic function, EF 60%.. Grade I/IV diastolic dysfunction (abnormal relaxation filling pattern), normal to mildly elevated filling pressures. Mild left ventricular hypertrophy. No regional wall motion abnormalities. Mild aortic valve regurgitation. Trace tricuspid valve regurgitation. Estimated pulmonary artery peak systolic pressure 28 mmHg. There is no pericardial effusion. There are no intracardiac masses. Had an episode of drowsiness and hypotension with MAP of 62 after administration of her psychiatric medications. Will reassess psych meds accordingly. 03/19/25 Labs for evaluation of pheochromocytoma pending. She has been off Cardene drip for the last 48 hours. Blood pressure has been stable in 120s. BP meds and psychiatric medications on hold secondary to hypotension and drowsiness. Continue to monitor. Will introduce BP meds as needed and continue to hold psychiatry medications. She was educated and counseled about polypharmacy causing hypotension hypoxia, was able to understand and agrees with plan of care. 03/20/25 Patient had rebound HTN after clonidine yesterday, discontinued clonidine. will follow up nephrology. still has variation in BP. monitor for now. labs reviewed. Acute renal failure improving. Psych meds are on hold. PDMP PDMP Reviewed: Not Reviewed Attestations 2 Medical Necessity Statement*: Needs continued hospitalization crossing 2 midnights for management of hypertensive urgency with cardiac monitoring, ,and supportive care. Time Spent in Patient Care: 15 minutes Coding Level of Care Code Acute Code for Chg Fwd Diagnoses Hypertensive urgency I16.0 Chest pain R07.9 Syncope R55 Lactic acidosis E87.20 Adrenal nodule E27.9 Anxiety F41.9 MDD (major depressive disorder) F32.9 Time Spent (min) 15
--- NOTE | 2025-03-20 12:44 | PM.PN ---
Subjective Subjective: bp trends noted Medications: Reviewed: Yes Vitals/I&O/Wt Last Vital Signs Temp 98.2 F 03/20/25 08:00 Pulse 82 03/20/25 08:00 Resp 20 H 03/20/25 08:00 BP 164/104 03/20/25 08:00 Pulse Ox 94 03/20/25 08:00 O2 Del Method Room Air 03/20/25 08:00 O2 Flow Rate 2 03/20/25 03:22 03/19/25 03/20/25 03/20/25 22:59 06:59 14:59 Intake Total 120 / 120 Output Total 750 / 750 Balance -750 / -530 120 / 120 Weight last 48 hrs Weight 116.5 kg Weight 115.757 kg Physical Exam Narrative: awake , alert , no distress On room air S1S2 RRR per report Lungs clear per report Abd - soft , non tender per report No edema Data 03/20/25 03:43 03/20/25 03:43 A&P Assessment and plan (1) Hypertensive urgency: 1. Malignant hypertension: pt on multiple agents including clonidine, beta-salvador, alpha-salvador, KRYSTAL inhibitors and calcium channel blockers. -patient has a known adrenal mass, workup for secondary causes of hypertension ordered. Noted that-urine 24-hour catecholamines and metanephrines, serum cortisol level, plasma renin activity and aldosterone levels have been ordered - renal Doppler negative - Pt dropped BP drastically after home meds restarted -- which raise question of medication non complaince VS anxiety , Also pheochromocytoma can cause episodic symptoms -PRN clonidine stopped , currently on Nifedipine 30 MG and added Hydralazine 25 mg TID 2. Acute on Chronic kidney disease stage III: rise in Cr likely from hemodynamic changes from fluctuating bPs , Cr better today Followed by nephrology as outpatient, 3. Hypernatremia, associated with low normal potassium and hypertension-need to rule out hyperaldosteronism: Workup as above 4. Metabolic acidosis, in the setting of lactic acidosis 5. History of CHF, repeat echocardiogram 7. History of kidney stones per patient: Checking calcium, PTH and vitamin D levels, check urine calcium, PTH, urine citrate and oxalate 8. History of anxiety and depression (2) CKD (chronic kidney disease) stage 3, GFR 30-59 ml/min: PDMP PDMP Reviewed: Not Reviewed Attestations Medical Necessity Statement*: per [facility] Coding Level of Care Code Acute Code for Chg Fwd Diagnoses Hypertensive urgency I16.0 CKD (chronic kidney disease) stage 3, GFR 30-59 ml/min N18.30
[2025-03-20] MEDS: hyDRALAzine 25 mg Tablet PO ×2 (13:49→20:06)
[2025-03-20] MEDS: prazosin 5 mg Capsule 25 MG PO (13:51)
[2025-03-20] MEDS: famotidine 20 mg Tablet PO (17:36)
[2025-03-20] MEDS: morphine 4 mg/mL SDV 1 mL 1 MG IVP (21:08)
[2025-03-21] VITALS (8 sets, daily range): BP systolic 112–156; BP diastolic 71–95; PULSE 89–121; RESP 12–21; TEMP 36.6–37; O2SAT 95–97
[2025-03-21 00:40] LABS: Plasma Renin Activity LC/MS/MS 0.11 ng/mL/h (0.25-5.82)
[2025-03-21] MEDS: heparin 5,000 unit/mL INJ 1 mL 5000 UNIT SUBCUT (04:01)
[2025-03-21] MEDS: prazosin 5 mg Capsule 25 MG PO (05:16)
[2025-03-21] MEDS: famotidine 20 mg Tablet PO ×2 (07:57→17:33)
[2025-03-21] MEDS: NIFEdipine ER (24 hr) 30 mg Tablet PO (07:57)
[2025-03-21] MEDS: potassium chloride ER 10 mEq Tablet PO ×2 (07:58→17:33)
[2025-03-21] MEDS: oxybutynin chloride XL 5 MG TABLET 10 MG PO (07:58)
[2025-03-21] MEDS: hyDRALAzine 25 mg Tablet PO (07:58)
--- NOTE | 2025-03-21 10:36 | P.PN_ITS ---
Subjective 2 Subjective: Blood pressure is reasonably stable Medications: Reviewed: Yes Vitals/I&O/Wt Last Vital Signs Temp 98.4 F 03/21/25 08:00 Pulse 89 03/21/25 08:00 Resp 12 03/21/25 08:00 BP 124/76 03/21/25 08:00 Pulse Ox 95 03/21/25 08:00 O2 Del Method Room Air 03/21/25 08:00 O2 Flow Rate 2 03/20/25 16:00 03/20/25 03/21/25 03/21/25 22:59 06:59 14:59 Intake Total 60 / 300 Output Total 300 / 300 200 / 200 Balance -240 / 0 -200 / -200 Weight last 48 hrs Weight 116 kg Weight 116.5 kg Physical Exam 2 Narrative: awake , alert , no distress On room air S1S2 RRR per report Lungs clear per report Abd - soft , non tender per report No edema Data 03/20/25 03:43 03/20/25 03:43 A&P Assessment and plan (1) Hypertensive urgency: 1. Malignant hypertension: pt on multiple agents including clonidine, beta- salvador, alpha-salvador, KRYSTAL inhibitors and calcium channel blockers. -patient has a known adrenal mass, workup for secondary causes of hypertension ordered. Noted that-urine 24-hour catecholamines and metanephrines, serum cortisol level, plasma renin activity and aldosterone levels have been ordered - renal Doppler negative - Pt dropped BP drastically after home meds restarted -- which raise question of medication non complaince VS anxiety , Also pheochromocytoma can cause episodic symptoms -PRN clonidine stopped , currently on Nifedipine 30 MG and added Hydralazine 25 mg TID , Minipress 25 mg daily, can add additional hydralazine 25 mg p.o. 3 times daily as needed for systolic blood pressure more than 160 and diastolic blood pressure more than 100. 2. Acute on Chronic kidney disease stage III: rise in Cr likely from hemodynamic changes from fluctuating bPs , creatinine stable Followed by nephrology as outpatient, 3. Hypernatremia, associated with low normal potassium and hypertension-need to rule out hyperaldosteronism: Workup as above 4. Metabolic acidosis, in the setting of lactic acidosis 5. History of CHF, repeat echocardiogram 7. History of kidney stones per patient: Checking calcium, PTH and vitamin D levels, check urine calcium, PTH, urine citrate and oxalate 8. History of anxiety and depression (2) CKD (chronic kidney disease) stage 3, GFR 30-59 ml/min: PDMP PDMP Reviewed: Not Reviewed Attestations 2 Medical Necessity Statement*: Per medicine team Coding Level of Care Code Acute Code for Chg Fwd Diagnoses Hypertensive urgency I16.0 CKD (chronic kidney disease) stage 3, GFR 30-59 ml/min N18.30
--- NOTE | 2025-03-21 13:55 | PC.SOCIAL ---
IMM Updated Updated pt on IMM. No questions voiced. Provided pt a copy. Initialed, dated, & timed copy in chart.
[2025-03-21 14:16] LABS: Metanephrines Total Urine 2100 mL; Urine Metanephrines Total 653 mcg/24 h (182-739)
--- NOTE | 2025-03-21 17:25 | PM.PN ---
Subjective Subjective: No acute overnight events noted, seen her at bedisde this morning. Still seems anxious. Was able to get to bedside commode without feeling dizzy. Medications: Reviewed: Yes Vitals/I&O/Wt Last Vital Signs Temp 98.6 F 03/21/25 12:00 Pulse 98 03/21/25 12:00 Resp 14 03/21/25 12:00 BP 132/85 03/21/25 12:00 Pulse Ox 96 03/21/25 12:00 O2 Del Method Room Air 03/21/25 12:00 O2 Flow Rate 2 03/20/25 16:00 03/21/25 03/21/25 03/21/25 06:59 14:59 22:59 Intake Total 60 / 60 Output Total 200 / 200 Balance -140 / -140 Weight last 48 hrs Weight 116 kg Weight 116.5 kg Physical Exam Narrative: She is alert awake oriented x 3, not in acute distress, morbidly obese Chest clear to auscultation bilaterally Cardiovascular normal heart sounds no murmurs Abdomen soft nontender nondistended normal bowel sounds Extremities no edema noted bilateral lower extremities Data 03/20/25 03:43 03/20/25 03:43 A&P Assessment and plan (1) Hypertensive urgency: (2) Chest pain: (3) Syncope: (4) Lactic acidosis: (5) Adrenal nodule: (6) Anxiety: (7) MDD (major depressive disorder): Plan Carmela Mcgowan is a 49 year old female with past medical history of hypertension, difficult to control, anxiety, MDD, colitis, congestive heart failure was sent from endocrinology clinic today for extremely high blood pressure of 238/120. [employer] ADMINISTRATOR called. She was complaining of chest discomfort and nausea at the time. While on her way to ER she had a syncopal episode. As per the patient she has been having difficult to control high blood pressure since last few years and has been working with psychiatry, primary care, nephrology for appropriate treatment. She was referred to endocrinology for further evaluation of pheochromocytoma. As per the patient she woke up this morning with high blood pressure, systolic in 200s and was not feeling well, took nitroglycerin and clonidine for blood pressure but still walked to the endocrinology clinic for further workup. She has a history of multiple ICU admissions for hypertensive urgency. She normally follows at [facility] for her medical problems. In ER EKG was sinus tachycardia at 160 bpm, no acute ST-T changes. Chest x-ray negative for acute findings Labs reviewed and showed WBCs 12.0 creatinine 1.3 proBNP 184 Lactate 6.3, anion gap 26 Abnormal LFTs First set of troponins 12 #Hypertensive urgency-unknown etiology Blood pressure at endocrinology clinic was 238/120, in the ER found to be 225/138 with heart rate of 105 received IV labetalol 20 mg and started on nicardipine drip at 5 mg/h Blood pressure currently 127/84 Will reduce nicardipine drip to 2.5 mg/h Continue CLERICAL AND ADMINISTRATIVE WORKERS nifedipine 90 mg daily, metoprolol 100 mg twice daily, losartan 50 mg daily, clonidine, prazosin and potassium chloride Will check 2D echo 17.8 mm adrenal nodule left side benign in appearance, 05/2023 CT scan , nodule was stable in size compared [address] scan Will check following labs Plasma renin activity Creatinine 24-hour urine Aldosterone Cortisol free 24-hour urine Metanephrines fraction 24-hour urine Cortisol random Catecholamines free urine 24-hour Parathyroid with calcium Nephrology consult #Chest pain-likely secondary to hypertensive urgency EKG sinus tachycardia at 160 bpm, no acute ST-T changes First set of troponins 12. Follow-up's 2-hour and 6-hour troponins Continue cardiac monitoring #Syncope-likely secondary to hypertensive urgency Will continue to monitor Fall precautions #Leukocytosis-likely reactive Will monitor #Lactic acidosis and high anion gap-etiology unknown Will recheck #Anxiety/MDD-continue CLERICAL AND ADMINISTRATIVE WORKERS alprazolam, aripiprazole, buprenorphine, bupropion, buspirone, hydroxyzine, lamotrigine, sertraline, topiramate and trazodone #GERD-will hold CLERICAL AND ADMINISTRATIVE WORKERS omeprazole #OAB-continue CLERICAL AND ADMINISTRATIVE WORKERS oxybutynin GI prophylaxis with IV Pepcid 20 mg twice daily DVT prophylaxis with subcutaneous heparin CODE STATUS discussed with patient, she is DNR/DNI. 03/18/25 Nephrology consult appreciated. Labs ordered as per recommendation. Blood pressure has been well-controlled since last night. Cardene drip has been discontinued at 9 PM last night. Patient received her psychiatric medications last night. Seems to be holding blood pressure with systolic blood pressure in 120s. Question about compliance with hypertension medications. Will hold BP meds for now and introduce 1 at a time to evaluate for need for multiple medications. Continue to monitor in ICU. Follow-up nephrology for further recommendations. 2 D ECHO showed CONCLUSIONS Normal left ventricular size and systolic function, EF 60%.. Grade I/IV diastolic dysfunction (abnormal relaxation filling pattern), normal to mildly elevated filling pressures. Mild left ventricular hypertrophy. No regional wall motion abnormalities. Mild aortic valve regurgitation. Trace tricuspid valve regurgitation. Estimated pulmonary artery peak systolic pressure 28 mmHg. There is no pericardial effusion. There are no intracardiac masses. Had an episode of drowsiness and hypotension with MAP of 62 after administration of her psychiatric medications. Will reassess psych meds accordingly. 03/19/25 Labs for evaluation of pheochromocytoma pending. She has been off Cardene drip for the last 48 hours. Blood pressure has been stable in 120s. BP meds and psychiatric medications on hold secondary to hypotension and drowsiness. Continue to monitor. Will introduce BP meds as needed and continue to hold psychiatry medications. She was educated and counseled about polypharmacy causing hypotension hypoxia, was able to understand and agrees with plan of care. 03/20/25 Patient had rebound HTN after clonidine yesterday, discontinued clonidine. will follow up nephrology. still has variation in BP. monitor for now. labs reviewed. Acute renal failure improving. Psych meds are on hold. 03/21/25 BP has been stabilised. She had an episode of syncope yesterday morning while transferring from bed to commode. She was found to be hypertensive and tachycardic, shaking and sweating. But was alert, awake and oriented. counseled about anxiety related to her HTN and weakness/fear of fall. She seemed to understand. She has been having shaking in her lower extremities and hence fear of fall which could be contributing to her hypertensive urgency and tachycardia. There is no evidence of intermediate Hypertensive urgency on ECHO. Also since psych medications are on hold, her Blood pressure seemed to have improved. She would need subacute rehab for muscle strengthening and outpatient psychological counselling for phobia. case management consulted for discharge planning. PDMP PDMP Reviewed: Not Reviewed Attestations Medical Necessity Statement*: Awaiting discharge to subacute facility for rehab Time Spent in Patient Care: 15minutes Coding Level of Care Code Acute Code for Chg Fwd Diagnoses Hypertensive urgency I16.0 Chest pain R07.9 Syncope R55 Lactic acidosis E87.20 Adrenal nodule E27.9 Anxiety F41.9 MDD (major depressive disorder) F32.9 Time Spent (min) 15
[2025-03-21] MEDS: acetaminophen 500 mg Tablet 1000 MG PO (20:07)
[2025-03-21] MEDS: efferdent effervescent 1 EACH DENTAL (20:49)
[2025-03-22] VITALS (9 sets, daily range): BP systolic 124–162; BP diastolic 84–108; PULSE 85–161; RESP 12–22; TEMP 36.6–37.3; O2SAT 93–98
[2025-03-22] MEDS: heparin 5,000 unit/mL INJ 1 mL 5000 UNIT SUBCUT ×2 (02:40→14:42)
[2025-03-22] MEDS: prazosin 5 mg Capsule 25 MG PO (05:15)
[2025-03-22 06:33] LABS: Basophils % 0.6 %; Eosinophils # 0.2 10^3/uL (0.0-0.8); Eosinophils % 2.9 %; Lymphocytes # 1.7 10^3/uL (0.8-4.8); Lymphocytes % 26.7 %; Mean Corpuscular Hemoglobin 30.6 pg (27-33); Mean Corpuscular Volume 89.9 fl (85-98); Mean Platelet Volume 9.4 fL (7.4-10.4); Monocytes # 0.5 10^3/uL (0.2-0.9); Monocytes % 8.1 %; Neutrophils % 61.4 %; Nucleated Red Blood Cells % 0 %; Platelet Count 299 10^3/cmm (157-399); Red Blood Count 4.67 10^6/uL (3.85-5.65); Red Cell Distribution Width 12.7 % (12.1-15.1); White Blood Count 6.52 10^3/uL (3.29-11.43)
[2025-03-22 06:55] LABS: Anion Gap 18.9 (5-19); Blood Urea Nitrogen 14 mg/dL (6-20); Calcium 9.3 mg/dL (8.5-10.5); Carbon Dioxide 22 mmol/L (22-29); Chloride 103 mmol/L (98-107); Creatinine Clr Calc Pharmacy 80.7682; Glomerular Filtration Rate 52.8 mL/min (90-130); Glucose 147 mg/dL (65-115); Osmolality Calculated 293 mOsm/kg (285-295); Potassium 3.9 mmol/L (3.5-5.1); Sodium 140 mmol/L (136-145)
[2025-03-22] MEDS: oxybutynin chloride XL 5 MG TABLET 10 MG PO (08:59)
[2025-03-22] MEDS: famotidine 20 mg Tablet PO ×2 (08:59→18:40)
[2025-03-22] MEDS: potassium chloride ER 10 mEq Tablet PO (08:59)
[2025-03-22] MEDS: NIFEdipine ER (24 hr) 30 mg Tablet PO (08:59)
[2025-03-22] MEDS: acetaminophen 500 mg Tablet 1000 MG PO (09:02)
--- NOTE | 2025-03-22 10:14 | P.PN_ITS ---
Subjective 2 Subjective: havig presyncopal episodes and orthostatic hypotension when she gets up Medications: Reviewed: Yes Vitals/I&O/Wt Last Vital Signs Temp 98.0 F 03/22/25 07:42 Pulse 119 H 03/22/25 07:42 Resp 12 03/22/25 07:42 BP 152/92 03/22/25 07:42 Pulse Ox 98 03/22/25 07:42 O2 Del Method Room Air 03/22/25 07:42 O2 Flow Rate 2 03/20/25 16:00 03/21/25 03/22/25 03/22/25 22:59 06:59 14:59 Intake Total 520 / 580 0 / 580 240 / 240 Output Total 0 / 200 Balance 520 / 380 0 / 380 240 / 240 Weight last 48 hrs Weight 110.9 kg Weight 116 kg Physical Exam 2 Narrative: awake , alert , no distress On room air S1S2 RRR per report Lungs clear per report Abd - soft , non tender per report No edema Data 03/22/25 06:23 03/22/25 06:23 A&P Assessment and plan (1) Hypertensive urgency: 1. Malignant hypertension: pt on multiple agents including clonidine, beta- salvador, alpha-salvador, KRYSTAL inhibitors and calcium channel blockers at home . -patient has a known adrenal mass, workup for secondary causes of hypertension ordered. Noted that-urine 24-hour catecholamines and metanephrines, serum cortisol level, plasma renin activity and aldosterone levels have been ordered - renal Doppler negative - Pt dropped BP drastically after home meds restarted -- which raise question of medication non complaince VS severe anxiety , Also pheochromocytoma can cause episodic symptoms -PRN clonidine stopped , -currently on Nifedipine 30 MG and Minipress 25 mg daily, Bps in 120 - 160 range but has orthostatic hypotension , advised compression stockings , may consider Fludrocortisone 2. Acute on Chronic kidney disease stage III: rise in Cr likely from hemodynamic changes from fluctuating bPs , creatinine stable Followed by nephrology as outpatient, 3. Hypernatremia, resolved 4. Metabolic acidosis, in the setting of lactic acidosis 5. History of CHF, repeat echocardiogram 7. History of kidney stones per patient: Checking calcium, PTH and vitamin D levels, check urine calcium, PTH, urine citrate and oxalate 8. History of anxiety and depression (2) CKD (chronic kidney disease) stage 3, GFR 30-59 ml/min: PDMP PDMP Reviewed: Not Reviewed Attestations 2 Medical Necessity Statement*: per [facility] Coding Level of Care Code Acute Code for Chg Fwd Diagnoses Hypertensive urgency I16.0 CKD (chronic kidney disease) stage 3, GFR 30-59 ml/min N18.30
--- NOTE | 2025-03-22 10:47 | PC.CHAP ---
Pastoral Care Encounter/Spiritual Assessment Type of Contact [] Declined union steward visit [] Patient/Family/Request visit [] Outpatient visit [] Follow-up visit [] Physician referral [] Code/Alert [] Routine visit [] Staff referral [] Actively dying [x] Patient sleeping [] Family support [] [] Out of room [] Palliative care [] [] Receiving care in room [] Pre-surgical visit [] Trauma [] Long length of stay [] ICU visit [] Other: Relational/Emotional Strength [] Patient feels connected with others/family/visitors/staff [] Distress [] Loneliness/isolation [] Abandonment Spirituality of Patient [] Person of Jenifer [] Attends Evangelical of their Jenifer [] Believes in Prayer [] Reads Bible or Worship materials [] There are Spiritual issues to be addressed Preventive Medicine Specialist Interventions [] Prayer [] Active listening [] Non-anxious presence [] Spiritual/emotional support [] Crisis/trauma care [] Spiritual counseling [] Bereavement support [] Provided bereavement packet [] Provided Bible/devotional materials [] Provided toy/stuffed animal, coloring book to patient or family member [] Provided Communion [] Anointing/[place] [] Salvation [] Completed spiritual assessment [] Other: Impact on Illness or Injury [] Angry [] Fearful [] Anxious [] Often cries [] Exhaustion [] Unable to work [] Unable to attend voodoo [] Unable to walk/stand [] Unable to read [] Unable to drive [] Unable to eat/drink [] Unable to sleep [] Unable to be with family [] Patient intubated [] Other: Summary Time spent with patient
[2025-03-22] MEDS: artificial tears Op Soln 15 mL Btl 1 DROP EYE-RIGHT (10:49)
[2025-03-22] MEDS: OLANZapine 5 mg TABLET PO (10:49)
[2025-03-22] MEDS: lactulose oral liq 20 gm/30 mL UDC 30 GM PO (10:49)
--- NOTE | 2025-03-22 12:58 | P.PN_ITS ---
Subjective 2 Subjective: No acute overnight events noted. Seen her at bedside this morning still seems anxious, unable to ambulate and had a near syncopal episode this morning. Medications: Reviewed: Yes Vitals/I&O/Wt Last Vital Signs Temp 98.0 F 03/22/25 07:42 Pulse 161 H 03/22/25 12:00 Resp 22 H 03/22/25 12:00 BP 128/108 03/22/25 12:00 Pulse Ox 97 03/22/25 12:00 O2 Del Method Room Air 03/22/25 07:42 O2 Flow Rate 2 03/20/25 16:00 03/21/25 03/22/25 03/22/25 22:59 06:59 14:59 Intake Total 520 / 580 0 / 580 240 / 240 Output Total 0 / 200 Balance 520 / 380 0 / 380 240 / 240 Weight last 48 hrs Weight 110.9 kg Weight 116 kg Physical Exam 2 Narrative: She is alert awake oriented x 3, not in acute distress, morbidly obese Chest clear to auscultation bilaterally Cardiovascular normal heart sounds no murmurs Abdomen soft nontender nondistended normal bowel sounds Extremities no edema noted bilateral lower extremities Data 03/22/25 06:23 03/22/25 06:23 A&P Assessment and plan (1) Hypertensive urgency: (2) Chest pain: (3) Syncope: (4) Lactic acidosis: (5) Adrenal nodule: (6) Anxiety: (7) MDD (major depressive disorder): Plan Carmela Mcgowan is a 49 year old female with past medical history of hypertension, difficult to control, anxiety, MDD, colitis, congestive heart failure was sent from endocrinology clinic today for extremely high blood pressure of 238/120. CATTLE BROKER called. She was complaining of chest discomfort and nausea at the time. While on her way to ER she had a syncopal episode. As per the patient she has been having difficult to control high blood pressure since last few years and has been working with psychiatry, primary care, nephrology for appropriate treatment. She was referred to endocrinology for further evaluation of pheochromocytoma. As per the patient she woke up this morning with high blood pressure, systolic in 200s and was not feeling well, took nitroglycerin and clonidine for blood pressure but still walked to the endocrinology clinic for further workup. She has a history of multiple ICU admissions for hypertensive urgency. She normally follows at [facility] for her medical problems. In ER EKG was sinus tachycardia at 160 bpm, no acute ST-T changes. Chest x-ray negative for acute findings Labs reviewed and showed WBCs 12.0 creatinine 1.3 proBNP 184 Lactate 6.3, anion gap 26 Abnormal LFTs First set of troponins 12 #Hypertensive urgency-unknown etiology Blood pressure at endocrinology clinic was 238/120, in the ER found to be 225/138 with heart rate of 105 received IV labetalol 20 mg and started on nicardipine drip at 5 mg/h Blood pressure currently 127/84 Will reduce nicardipine drip to 2.5 mg/h Continue ROTARY DRILLER HELPER nifedipine 90 mg daily, metoprolol 100 mg twice daily, losartan 50 mg daily, clonidine, prazosin and potassium chloride Will check 2D echo 17.8 mm adrenal nodule left side benign in appearance, 05/2023 CT scan , nodule was stable in size compared [address] scan Will check following labs Plasma renin activity Creatinine 24-hour urine Aldosterone Cortisol free 24-hour urine Metanephrines fraction 24-hour urine Cortisol random Catecholamines free urine 24-hour Parathyroid with calcium Nephrology consult #Chest pain-likely secondary to hypertensive urgency EKG sinus tachycardia at 160 bpm, no acute ST-T changes First set of troponins 12. Follow-up's 2-hour and 6-hour troponins Continue cardiac monitoring #Syncope-likely secondary to hypertensive urgency Will continue to monitor Fall precautions #Leukocytosis-likely reactive Will monitor #Lactic acidosis and high anion gap-etiology unknown Will recheck #Anxiety/MDD-continue ROTARY DRILLER HELPER alprazolam, aripiprazole, buprenorphine, bupropion, buspirone, hydroxyzine, lamotrigine, sertraline, topiramate and trazodone #GERD-will hold ROTARY DRILLER HELPER omeprazole #OAB-continue ROTARY DRILLER HELPER oxybutynin GI prophylaxis with IV Pepcid 20 mg twice daily DVT prophylaxis with subcutaneous heparin CODE STATUS discussed with patient, she is DNR/DNI. 03/18/25 Nephrology consult appreciated. Labs ordered as per recommendation. Blood pressure has been well-controlled since last night. Cardene drip has been discontinued at 9 PM last night. Patient received her psychiatric medications last night. Seems to be holding blood pressure with systolic blood pressure in 120s. Question about compliance with hypertension medications. Will hold BP meds for now and introduce 1 at a time to evaluate for need for multiple medications. Continue to monitor in ICU. Follow-up nephrology for further recommendations. 2 D ECHO showed CONCLUSIONS Normal left ventricular size and systolic function, EF 60%.. Grade I/IV diastolic dysfunction (abnormal relaxation filling pattern), normal to mildly elevated filling pressures. Mild left ventricular hypertrophy. No regional wall motion abnormalities. Mild aortic valve regurgitation. Trace tricuspid valve regurgitation. Estimated pulmonary artery peak systolic pressure 28 mmHg. There is no pericardial effusion. There are no intracardiac masses. Had an episode of drowsiness and hypotension with MAP of 62 after administration of her psychiatric medications. Will reassess psych meds accordingly. 03/19/25 Labs for evaluation of pheochromocytoma pending. She has been off Cardene drip for the last 48 hours. Blood pressure has been stable in 120s. BP meds and psychiatric medications on hold secondary to hypotension and drowsiness. Continue to monitor. Will introduce BP meds as needed and continue to hold psychiatry medications. She was educated and counseled about polypharmacy causing hypotension hypoxia, was able to understand and agrees with plan of care. 03/20/25 Patient had rebound HTN after clonidine yesterday, discontinued clonidine. will follow up nephrology. still has variation in BP. monitor for now. labs reviewed. Acute renal failure improving. Psych meds are on hold. 03/21/25 BP has been stabilised. She had an episode of syncope yesterday morning while transferring from bed to commode. She was found to be hypertensive and tachycardic, shaking and sweating. But was alert, awake and oriented. counseled about anxiety related to her HTN and weakness/fear of fall. She seemed to understand. She has been having shaking in her lower extremities and hence fear of fall which could be contributing to her hypertensive urgency and tachycardia. There is no evidence of custodial Hypertensive urgency on ECHO. Also since psych medications are on hold, her Blood pressure seemed to have improved. She would need subacute rehab for muscle strengthening and outpatient psychological counselling for phobia. case management consulted for discharge planning. 03/22/25 She has been having intermittent near syncopal or syncopal episodes. Still as per my evaluation she has severe anxiety, contributing to orthostasis and syncope. She also becomes hypertensive and tachycardic when standing at bedside. She has been having fear of fall which is restricting her mobility. Lab work for pheochromocytoma so far negative. Plan for psychiatry consult for further evaluation and medication adjustment. Will start on home medication alprazolam 1 mg 3 times daily for now. Her hypertensive and tachycardic episode associated with orthostasis and syncope less likely cardiac in origin. Labs have been acceptable so far. No significant findings that would contribute to her syncopal episodes. She needs postural training, compression stockings and axiety treatment for orthostasis. PDMP PDMP Reviewed: Not Reviewed Attestations 2 Medical Necessity Statement*: Awaiting discharge to subacute facility for rehab,and psychiatry consult. Time Spent in Patient Care: 25minutes Coding Level of Care Code Acute Code for Chg Fwd Diagnoses Hypertensive urgency I16.0 Chest pain R07.9 Syncope R55 Lactic acidosis E87.20 Adrenal nodule E27.9 Anxiety F41.9 MDD (major depressive disorder) F32.9 Time Spent (min) 25
[2025-03-22] MEDS: metoprolol tartrate 50 mg Tablet PO (14:42)
[2025-03-22] MEDS: ALPRAZolam 0.5 mg Tablet 1 MG PO ×2 (14:42→20:35)
[2025-03-23] MEDS: heparin 5,000 unit/mL INJ 1 mL 5000 UNIT SUBCUT (03:13)
[2025-03-23 04:00] VITALS: BP 123/75; PULSE 82; RESP 13; TEMP 36.8; O2SAT 98
[2025-03-23] MEDS: artificial tears Op Soln 15 mL Btl 1 DROP EYE-RIGHT (04:11)
[2025-03-23 05:35] VITALS: PULSE 86
[2025-03-23] MEDS: prazosin 5 mg Capsule 25 MG PO (05:45)
--- NOTE | 2025-03-23 07:23 | PC.NURSE ---
around 2 am patient call light went off, this nurse went to go answer it and upon entering the patient laying on the bed, the patient got up and used the BSC all by herself, this nurse educated the patient about not getting up alone, because of the risk of falling, patient verbally expressed understanding, bed alarm placed on
--- NOTE | 2025-03-23 07:41 | PM.PN ---
Subjective Subjective: events noted Medications: Reviewed: Yes Vitals/I&O/Wt Last Vital Signs Temp 98.3 F 03/23/25 04:00 Pulse 86 03/23/25 05:35 Resp 13 03/23/25 04:00 BP 123/75 03/23/25 04:00 Pulse Ox 98 03/23/25 04:00 O2 Del Method Room Air 03/23/25 04:00 O2 Flow Rate 2 03/20/25 16:00 03/22/25 03/23/25 03/23/25 22:59 06:59 14:59 Intake Total 450 / 690 100 / 790 Output Total Balance 449 / 689 100 / 789 Weight last 48 hrs Weight 109.8 kg Weight 110.9 kg Physical Exam Narrative: awake , alert , no distress On room air S1S2 RRR per report Lungs clear per report Abd - soft , non tender per report No edema Data 03/22/25 06:23 03/22/25 06:23 A&P Assessment and plan (1) Hypertensive urgency: 1. Malignant hypertension: pt on multiple agents including clonidine, beta-salvador, alpha-salvador, KRYSTAL inhibitors and calcium channel blockers at home . -patient has a known adrenal mass, workup for secondary causes of hypertension ordered. Noted that-urine 24-hour catecholamines and metanephrines, serum cortisol level, plasma renin activity and aldosterone levels have been ordered - renal Doppler negative - Pt dropped BP drastically after home meds restarted -- which raise question of medication non complaince VS severe anxiety , Also pheochromocytoma can cause episodic symptoms -PRN clonidine stopped , -currently on Nifedipine 30 MG and Minipress 25 mg daily, Bps in 120 - 160 range but has orthostatic hypotension , advised compression stockings.added metoprolol 2. Acute on Chronic kidney disease stage III: rise in Cr likely from hemodynamic changes from fluctuating bPs , creatinine stable Followed by nephrology as outpatient, 3. Hypernatremia, resolved 4. Metabolic acidosis, in the setting of lactic acidosis 5. History of CHF, repeat echocardiogram 7. History of kidney stones per patient: Checking calcium, PTH and vitamin D levels, check urine calcium, PTH, urine citrate and oxalate 8. History of anxiety and depression (2) CKD (chronic kidney disease) stage 3, GFR 30-59 ml/min: PDMP PDMP Reviewed: Not Reviewed Attestations Medical Necessity Statement*: per [facility] Coding Level of Care Code Acute Code for Chg Fwd Diagnoses Hypertensive urgency I16.0 CKD (chronic kidney disease) stage 3, GFR 30-59 ml/min N18.30
[2025-03-23 08:00] VITALS: BP 174/109; PULSE 97; RESP 14; TEMP 36.6; O2SAT 98
[2025-03-23] MEDS: oxybutynin chloride XL 5 MG TABLET 10 MG PO (08:12)
[2025-03-23] MEDS: ALPRAZolam 0.5 mg Tablet 1 MG PO (08:12)
[2025-03-23] MEDS: metoprolol tartrate 50 mg Tablet PO (08:12)
[2025-03-23] MEDS: NIFEdipine ER (24 hr) 30 mg Tablet PO (08:12)
[2025-03-23] MEDS: famotidine 20 mg Tablet PO (08:12)
[2025-03-23] MEDS: hyDRALAzine 25 mg Tablet PO (08:12)
--- NOTE | 2025-03-23 08:57 | PC.CHAP ---
Pastoral Care Encounter/Spiritual Assessment Type of Contact [] Declined photovoltaic installation technician visit [] Patient/Family/Request visit [] Outpatient visit [] Follow-up visit [] Physician referral [] Code/Alert [] Routine visit [] Staff referral [] Actively dying [x] Patient sleeping [] Family support [] [] Out of room [] Palliative care [] [] Receiving care in room [] Pre-surgical visit [] Trauma [] Long length of stay [] ICU visit [] Other: Relational/Emotional Strength [] Patient feels connected with others/family/visitors/staff [] Distress [] Loneliness/isolation [] Abandonment Spirituality of Patient [] Person of Jenifer [] Attends Shinto of their Jenifer [] Believes in Prayer [] Reads Bible or Jehovah'S Witness materials [] There are Spiritual issues to be addressed Personal Clothing Laundry Aide Interventions [] Prayer [] Active listening [] Non-anxious presence [] Spiritual/emotional support [] Crisis/trauma care [] Spiritual counseling [] Bereavement support [] Provided bereavement packet [] Provided Bible/devotional materials [] Provided toy/stuffed animal, coloring book to patient or family member [] Provided Communion [] Anointing/[place] [] Salvation [] Completed spiritual assessment [] Other: Impact on Illness or Injury [] Angry [] Fearful [] Anxious [] Often cries [] Exhaustion [] Unable to work [] Unable to attend faith [] Unable to walk/stand [] Unable to read [] Unable to drive [] Unable to eat/drink [] Unable to sleep [] Unable to be with family [] Patient intubated [] Other: Summary Time spent with patient
--- NOTE | 2025-03-23 09:03 | PC.SOCIAL ---
IMM Updated Updated pt on IMM. No questions voiced. Provided pt a copy. Initialed, dated, & timed copy in chart.
--- NOTE | 2025-03-23 11:03 | P.DS_ITS ---
Discharge Providers Date of Admission: 03/17/25 14:42 Date of Discharge: March 23, 2025 Attending Provider at Admission: Rebeca Montague MD Attending Provider at Discharge: Rebeca Montague MD Primary Care Provider: Ary Hernandez MD Diagnoses at Discharge Discharge Diagnosis (1) Hypertensive urgency: Status: Acute (2) CKD (chronic kidney disease) stage 3, GFR 30-59 ml/min: Status: Acute Reason for Visit Reason for Visit: rapid response - high bp and hr Brief History: Carmela Mcgowan is a 49 year old female with past medical history of hypertension, difficult to control, anxiety, MDD, colitis, congestive heart failure was sent from endocrinology clinic today for extremely high blood pressure of 238/120. [employer] called. She was complaining of chest discomfort and nausea at the time. While on her way to ER she had a syncopal episode. As per the patient she has been having difficult to control high blood pressure since last few years and has been working with psychiatry, primary care, nephrology for appropriate treatment. She was referred to endocrinology for further evaluation of pheochromocytoma. As per the patient she woke up this morning with high blood pressure, systolic in 200s and was not feeling well, took nitroglycerin and clonidine for blood pressure but still walked to the endocrinology clinic for further workup. She has a history of multiple ICU admissions for hypertensive urgency. [facility] At the time of assessment, denied any complaint of headache, nausea, vomiting, fever, cough, chest pain or shortness of breath. Hospital Course Hospital Course #Hypertensive urgency-unknown etiology Blood pressure at endocrinology clinic was 238/120, in the ER found to be 225/138 with heart rate of 105 received IV labetalol 20 mg and started on nicardipine drip at 5 mg/h Blood pressure currently 127/84 Will reduce nicardipine drip to 2.5 mg/h Continue [employer] nifedipine 90 mg daily, metoprolol 100 mg twice daily, losartan 50 mg daily, clonidine, prazosin and potassium chloride Will check 2D echo 17.8 mm adrenal nodule left side benign in appearance, 05/2023 CT scan , nodule was stable in size compared [address] scan Blood pressure was stable overnight and Cardene drip was discontinued. Systolic blood pressure was in 1 20-1 30s. She was also on multiple psychiatry medications which made her drowsy, hypoxic hypotensive and bradycardic. Hence all the psych meds were discontinued during hospitalization. Blood pressure seem to be controlled since admission on p.o. nifedipine daily, prazosin daily. She still continued to have near syncope/syncopal episode during hospitalization while getting up from the bed to standing posture. PT evaluation done. Syncopal episode likely secondary to severe anxiety in combination with orthostasis. Started her on p.o. Ativan 1 mg 3 times daily and p.o. metoprolol 50 mg daily for sinus tachycardia and anxiety. She needs postural training, compression stockings for orthostasis. 2D echo was normal with EF of 60% and grade 1 diastolic dysfunction. Nephrology consulted initially for workup for pheochromocytoma. Labs still pending. Needs to follow-up in endocrinology as outpatient for results for workup for pheochromocytoma. She is hemodynamically and medically stable but needs postural training, rehab and psychological counseling sessions/therapy for anxiety to prevent syncopal episodes. She was found to have right eye conjunctivitis this morning and started on ciprofloxacin eyedrops to be taken for 7 days. Needs follow-up as outpatient with endocrinology clinic, nephrology, psychiatry and primary care. Physical Exam Narrative: She is alert awake oriented x 3, not in acute distress, morbidly obese Chest clear to auscultation bilaterally Cardiovascular normal heart sounds no murmurs Abdomen soft nontender nondistended normal bowel sounds Extremities no edema noted bilateral lower extremities Discharge Data Studies Completed and Pending Completed Studies During Hospitalization Category Date Time Status XR chest 1V portable [id number] Stat Exams 03/17/25 11:14 Completed CV renal doppler [id number] Routine Ultrasound 03/18/25 06:00 Completed CV. echo complete* [id number] Stat Ultrasound 03/17/25 14:33 Completed Pending at discharge Category Date Time Status Catecholamines Free,Urine 24hr Routine Lab 03/17/25 14:33 Received Cortisol ,Free,LC/MS, S Routine Lab 03/17/25 15:14 Received Radiology Impressions Chest X-Ray 03/17/25 11:14 Impression: Negative chest. Laboratory Results WBC 6.52 10^3/uL (3.29-11.43) 03/22/25 06:23 RBC 4.67 10^6/uL (3.85-5.65) 03/22/25 06:23 Hgb 14.30 g/dL (11.27-16.99) 03/22/25 06:23 Hct 42.0 % (36-47) 03/22/25 06: MCV 89.9 fl (85-98) 03/22/25 06:23 MCH 30.6 pg (27-33) 03/22/25 06: MCHC 34.0 g/dL (30-55) 03/22/25 06:23 RDW 12.7 % (12.1-15.1) 03/22/25 06:23 Plt Count 299 10^3/cmm (157-399) 03/22/25 06:23 MPV 9.4 fL (7.4-10.4) 03/22/25 06:23 Neut % (Auto) 61.4 % 03/22/25 06:23 Lymph % (Auto) 26.7 % 03/22/25 06:23 [place] % (Auto) 8.1 % 03/22/25 06:23 Eos % (Auto) 2.9 % 03/22/25 06:23 Baso % (Auto) 0.6 % 03/22/25 06:23 Neut # (Auto) 4.00 10^3/uL (1.8-7.7) 03/22/25 06:23 Lymph # (Auto) 1.7 10^3/uL (0.8-4.8) 03/22/25 06:23 [place] # (Auto) 0.5 10^3/uL (0.2-0.9) 03/22/25 06:23 Eos # (Auto) 0.2 10^3/uL (0.0-0.8) 03/22/25 06:23 Baso # (Auto) 0.0 10^3/uL (0.0-0.1) 03/22/25 06:23 Nucleated RBC % (auto) 0 % 03/22/25 06: Nucleated RBCs # 0.0 /100WBC 03/22/25 06: Sodium 140 mmol/L (136-145) 03/22/25 06:23 Potassium 3.9 mmol/L (3.5-5.1) 03/22/25 06: Chloride 103 mmol/L (98-107) 03/22/25 06:23 Carbon Dioxide 22 mmol/L (22-29) 03/22/25 06:23 Anion Gap 18.9 (5-19) 03/22/25 06:23 BUN 14 mg/dL (6-20) 03/22/25 06:23 Creatinine 1.1 mg/dL (0.5-0.9) H 03/22/25 06:23 GFR Calculation 52.8 mL/min (90-130) L 03/22/25 06:23 Glucose 147 mg/dL (65-115) H 03/22/25 06:23 POC Glucose 116 mg/dL (70-110) H 03/19/25 18:09 Estimat Average Glucose 143 03/18/25 03:39 Hemoglobin A1c 6.6 % (4.0-6.0) H 03/18/25 03:39 Calculated Osmolality 293 mOsm/kg (285-295) 03/22/25 06:23 Lactic Acid 6.3 mmol/L (0.5-2.2) H* 03/17/25 11:15 Lactic Acid (Sepsis) 3.3 mmol/L (0.5-2.2) H 03/17/25 14:05 Calcium 9.3 mg/dL (8.5-10.5) 03/22/25 06:23 Magnesium 1.8 mg/dL (1.7-2.3) 03/20/25 03:43 Total Bilirubin 0.4 mg/dL (0.15-1.2) 03/20/25 03:43 AST 29 U/L (0-32) 03/20/25 03:43 ALT 31 U/L (0-33) 03/20/25 03:43 Alkaline Phosphatase 135 U/L (35-105) H 03/20/25 03:43 Troponin T Baseline 12 ng/L (0-10) H 03/17/25 11:15 Troponin T 120 Minute 14.59 ng/L (0-10) H 03/17/25 14:05 Delta Troponin T 2.59 ABS# (0-10) 03/17/25 14:05 Troponin T Hi Sens 6Hr 12.48 ng/L (0-10) H 03/17/25 17:16 Troponin T Hi Sens 6Hr Delta 0.48 ng/L (0-12) 03/17/25 17:16 NT-Pro-B Natriuret Pep 184 pg/mL (0-125) H 03/17/25 11:15 Total Protein 6.2 g/dL (6.6-8.7) L 03/20/25 03:43 Albumin 3.7 g/dL (3.5-5.2) 03/20/25 03:43 Globulin 2.5 g/dL (1.3-4.6) 03/20/25 03:43 Triglycerides 123 mg/dL (0-150) 03/18/25 03:39 Cholesterol 212 mg/dL (0-200) H 03/18/25 03:39 LDL Cholesterol, Calc 128 mg/dL (50-129) 03/18/25 03:39 HDL Cholesterol 59 mg/dL (60-100) L 03/18/25 03:39 LDL/HDL Ratio 2.17 RATIO (0.00-3.22) 03/18/25 03:39 Cholesterol/HDL Ratio 3.59 mg/dL (0.0-4.40) 03/18/25 03:39 Renin Activity 0.11 ng/mL/h (0.25-5.82) L 03/17/25 15:14 Renin Activity Cancelled 03/17/25 15:14 Aldosterone 3 ng/dL 03/17/25 15:14 Aldosterone Cancelled 03/17/25 15:14 Aldosterone/Renin Ratio Cancelled 03/17/25 15:14 TSH 0.65 uIU/mL (0.27-4.20) 03/18/25 03:39 PTH Intact 77.0 pg/mL (15-65) H 03/17/25 15:14 Calcium (PTH Intact) 9.6 mg/dL (8.5-10.5) 03/17/25 15:14 Random Cortisol 9.44 ug/dL (2.47-19.5) 03/17/25 15:14 Urine Color Yellow (Yellow) 03/17/25 14:00 Urine Appearance Clear (CLEAR) 03/17/25 14:00 Urine pH 6.5 (5-7) 03/17/25 14:00 Ur Specific [place] 1.009 (1.005-1.030) 03/17/25 14:00 Urine Protein 1+ (Negative) A 03/17/25 14:00 Urine Glucose (UA) Negative (Normal) 03/17/25 14:00 Urine Ketones Negative (Negative) 03/17/25 14:00 Urine Blood Negative (Negative) 03/17/25 14:00 Urine Nitrate Negative (Negative) 03/17/25 14:00 Urine Bilirubin Negative (Negative) 03/17/25 14:00 Urine Urobilinogen 0.2 mg/dL (Negative) 03/17/25 14:00 Ur Leukocyte Esterase Negative (Negative) 03/17/25 14:00 Urine RBC 0-2 /hpf (0-2) 03/17/25 14:00 Urine WBC 0-5 /hpf (0-5) 03/17/25 14:00 Ur Squamous Epith Cells 0-5 /hpf (0-5) 03/17/25 14:00 Amorphous Sediment Not Reportable 03/17/25 14:00 Urine Bacteria None seen /hpf (NONE) 03/17/25 14:00 Hyaline Casts 0-4 /lpf H 03/17/25 14:00 Urine Total Volume 2100 ml 03/18/25 13:45 Urine Total Volume 2100 ml 03/18/25 13:45 Urine Creatinine 72 mg/dL (28-217) 03/18/25 13:45 Ur Creatinine 24 Hour 1512.0 mg/dL (601-1689) 03/18/25 13:45 Ur Calcium 24 Hr 183 mg/24hr (100-300) 03/18/25 13:45 Urine Total Volume 653 mcg/24 h (182-739) 03/18/25 13:45 U Fract Metanephrines 143 mcg/24 h (58-203) 03/18/25 13:45 U Normetanephrine 24h 510 mcg/24 h (88-649) 03/18/25 13:45 U Tot Metanephrine 24h 2100 mL 03/18/25 13:45 Vitals Last Vital Signs Temp 97.8 F 03/23/25 08:00 Pulse 97 03/23/25 08:00 Resp 14 03/23/25 08:00 BP 174/109 03/23/25 08:00 Pulse Ox 98 03/23/25 08:00 O2 Del Method Room Air 03/23/25 08:00 O2 Flow Rate 2 03/20/25 16:00 Discharge Plan Discharge Patient Disposition: Home Condition: Stable Prescriptions: New nifedipine 30 mg Tablet Extended Release 24hr 30 mg PO DAILY 30 Days Qty: 30 0RF hydralazine 25 mg Tablet 25 mg PO TID PRN (Reason: Hypertension) 30 Days Qty: 30 0RF ciprofloxacin HCl 0.3 % Drops 1 drp eye-right QID 7 Days Qty: 10 0RF metoprolol tartrate 50 mg Tablet 50 mg PO DAILY 30 Days Qty: 30 0RF Tears Lubricant Eye Drop 0.5 % Drops 1 drp eye-right Q4H PRN (Reason: Dry Eye(S)) 30 Days Qty: 20 0RF Continued fluticasone propionate 50 mcg/actuation spray,suspension 2 spray intranasal DAILY alprazolam 2 mg tablet 2 mg PO TID omeprazole 40 mg capsule,delayed release(DR/EC) 40 mg PO DAILY prazosin 5 mg capsule 25 mg PO QPM mirabegron [Myrbetriq] 50 mg tablet extended release 24 hr 50 mg PO DAILY oxybutynin chloride 10 mg tablet extended release 24hr 10 mg PO DAILY Discontinued nitroglycerin 0.4 mg tablet, sublingual 0.4 mg sublingual PRN PRN (Reason: Chest Pain) sertraline 50 mg tablet 50 mg PO DAILY clonidine HCl 0.2 mg tablet 0.2 mg PO TID buprenorphine HCl 8 mg tablet, sublingual 8 mg sublingual BID potassium chloride 10 mEq tablet extended release 10 meq PO BID tizanidine 4 mg tablet 4 mg PO BID metoprolol succinate 100 mg tablet extended release 24 hr 100 mg PO BID nifedipine 90 mg tablet extended release 90 mg PO DAILY Patient Comments: take on an empty stomach promethazine 25 mg tablet 25 mg PO BID lamotrigine 100 mg tablet 100 mg PO DAILY trazodone 150 mg tablet 450 mg PO TID PRN (Reason: bedtime) Rx Instructions: take 3 tablets by mouth every day at bedtime as needed hydroxyzine pamoate 50 mg capsule 50 mg PO Q6H PRN (Reason: anxiety or sleep) bupropion HCl 150 mg tablet sustained-release 12 hr 150 mg PO DAILY losartan 50 mg tablet 50 mg PO DAILY topiramate 50 mg tablet 50 mg PO DAILY ergocalciferol (vitamin D2) 1,250 mcg (50,000 unit) capsule See Rx Instructions .ROUTE .COMPLEX Rx Instructions: 1,250 mcg orally take one weekly aripiprazole 15 mg tablet 30 mg PO BEDTIME Rx Instructions: take 2 tablets by mouth every day at bedtime buspirone 15 mg tablet 15 mg PO TID clonidine HCl 0.1 mg Tablet 0.1 mg PO TID PRN (Reason: for BP> 180 SBP and 105 DBP) promethazine [Promethegan] 25 mg Suppository 25 mg AR DAILY PRN (Reason: nausea) Rx Instructions: daily as needed for nausea Discharge Orders: Discharge Order (Routine); Ordered 03/23/25 Ordered By: Rebeca Montague Other Ambulatory Orders: DME: Wheelchair (Order) Location: None Selected Ordered By: Rebeca Montague Referrals: Ary Hernandez MD [Primary Care Provider] - Discharge Diet: Cardiac Discharge Activity: As per PT/OT instructions Patient Instructions: Opioid Safety Discharge Attestations Time Spent in Discharge Care*: less than 30 min Quality Metrics Clinical Quality Measures [ No reported AMI, CVA or VTE this stay] Coding Level of Care Code Acute Code for Chg Fwd Diagnoses Hypertensive urgency I16.0 CKD (chronic kidney disease) stage 3, GFR 30-59 ml/min N18.30 Time Spent (min) 20
[2025-03-23 11:58] VITALS: BP 125/96; PULSE 90; RESP 25; O2SAT 92
[2025-03-23 12:00] VITALS: BP 125/96; PULSE 84; RESP 12; TEMP 36.8; O2SAT 97
--- NOTE | 2025-03-23 12:03 | PC.NURSE ---
Addendum entered by Rosmery Saldana RN 03/23/25 12:38: 1204 Per charge nurse Eryn that she will call our facility to let us know on the time to strip picker pt for transportation to their facility. Original Note: called report to [facility] talked to Eryn Charge nurse to give report about pt's hospitalization and discharge meds and appointments. discharge papers faxed by [facility].
[2025-03-23] MEDS: ciprofloxacin 0.3% Op Soln 2.5 mL Btl 1 DROP EYE-RIGHT (13:09)
--- NOTE | 2025-03-23 13:30 | PC.NURSE ---
03/23/25 Around 13;30 pm- [facility] ambulance transportation personnel are here to car pick up driver the pt via stretcher. All pt's belongings are sent with her. Iv cath removed on left ac. catheter tip intact.
--- NOTE | 2025-03-23 13:46 | PC.NURSE ---
[facility] is here to hot die picker pt to hot die picker patient All pt's belongings are sent with pt and discharge papers. iv cath removed and cath tip intact.
[2025-03-24 22:15] LABS: Calculated Total (E+NE) 49 mcg/24 h (26-121)
[2025-03-27 21:15] LABS: Cortisol ,Free,LC/MS, S 0.32 mcg/dL
== END 2025-03-23 13:45 | DRG 305 ==
LOC: ER 12:47 → ER IP 14:42 → ICU 18:06 → CSU 03-19 15:58
PROVIDERS: Hospitalist; Internal Medicine; Admitting Provider Internal Medicine; Emergency Provider Emergency Medicine; PCP Family Medicine; Visit Provider Internal Medicine
DX: I16.0 Hypertensive urgency (principal); E87.20 Acidosis, unspecified; E87.0 Hyperosmolality and hypernatremia; N17.9 Acute kidney failure, unspecified; Z66 Do not resuscitate; I13.0 Hypertensive heart and chronic kidney disease with heart failure and stage 1 through stage 4 chronic kidney disease, or unspecified chronic kidney disease; N18.30 Chronic kidney disease, stage 3 unspecified; F41.9 Anxiety disorder, unspecified; I50.9 Heart failure, unspecified; F32.9 Major depressive disorder, single episode, unspecified; I95.1 Orthostatic hypotension; R00.1 Bradycardia, unspecified; T43.95XA Adverse effect of unspecified psychotropic drug, initial encounter; R09.02 Hypoxemia; R40.0 Somnolence; D35.02 Benign neoplasm of left adrenal gland; D72.829 Elevated white blood cell count, unspecified; K21.9 Gastro-esophageal reflux disease without esophagitis; N32.81 Overactive bladder; Z87.442 Personal history of urinary calculi; Z79.899 Other long term (current) drug therapy; Z88.8 Allergy status to other drugs, medicaments and biological substances
CPT/HCPCS: 36415; 36416; 71045; 80048; 80053; 80061; 81001; 82088; 82310; 82340; 82384; 82530; 82533; 82570; 82962; 83036; 83605; 83735; 83835; 83880; 83970; 84244; 84443; 84484; 85025; 93005; 93306; 93975; 94664; 96365; 96366; 96372; 96375; 96376; 97110; 97161; 97167; 97530; 97535; 99205; 99291; J1644; J2060; J2270; J2405; J3475; J3490; J9999; Q0169; Q3014